=== PATIENT | female | born 1945 | race Caucasian/White ===

== ENCOUNTER 2018-02-25 08:55 | Day surgery (SDC) | payer MEDICARE, SELFPAY ==
[2018-02-25 09:29] VITALS: BP 145/90; PULSE 74; RESP 16; TEMP 36.5; O2SAT 96
[2018-02-25] MEDS: Lactated Ringers 1,000 ML 30 ML IV (09:54)
--- NOTE | 2018-02-25 11:03 | W.COLOREPORT ---
Date of service: 02/25/18 Time of Service: 11:03 Colonoscopy Report Date of procedure: 02/25/18 Pre-op diagnosis general: Colorectal cancer screening Post-op diagnosis procedure note: other (Normal colon to the cecum) Procedure: Colonoscopy to the cecum Surgeon: Joao Quintanilla Anesthesia proc note operative: MAC (Mine Fitzpatrick CRNA; ASA 2 Mallampati class II) Estimated blood loss (mL): 0 Pathology: none sent Complications: None Disposition: same day Indications: 9-year-old woman presenting for colorectal cancer screening. She has been asymptomatic since her last colonoscopy which was unremarkable. She has no family history of colorectal cancer. Muscular procedure is been reviewed with her, and the risk discussed. All her questions been answered to her satisfaction, and consents been obtained to proceed with colonoscopy Prep: Miralax/Dulcolax (Prep quality excellent) Procedure Start Time: 11:23 Procedure End Time: 11:25 Retraction Time: 6 Findings: In examining the colon from cecum to anus, no abnormalities were noted throughout the colon, rectum, and anorectal junction. Procedure Description: The patient was seen in the day surgery waiting area. Her identification was confirmed, and procedure checked. She was then brought to the procedure room. Monitoring for telemetry, blood pressure, oxygen saturation, and end tidal CO2 monitoring were applied. An appropriate time out was performed to confirm, identification, allergies, medication, procedure, was performed. Sedation was titrated for affect by the [employer]EFITS; Once adequate sedation was achieved, I performed a inspection of the external perineum, and a digitial rectal examination. No significant external abnormalities were noted. On digital rectal examination, there was no blood, no masses, good rectal tone. I advanced the colonoscope from the anus to the cecum under direct visualization. The cecum was identified by the ileal-cecal valve, and the appendiceal orifice. The scope was then withdrawn in circumferential manner from the cecum to the rectum. No abnormalites were noted in the colon. The scope was then withdrawn into the rectum, and retroflexed. No abnormalities were noted of the rectum or anorectal junction. The scope was then withdrawn, terminating the procedure. There were no complications during the procedure, and the patient tolerated the procedure well. She was returned to the day surgery recovery area in good condition. Plan: Will continue with routine screening for colorectal cancer according to current consensus guidelines, which is currently 10 years.
--- NOTE | 2018-02-25 11:34 | W.PM.DSUDISC ---
Discharge Plan Disposition Patient Disposition: HOME Condition: Good Discharge Details Reason For Visit: SCREENING Attending Provider: Joao Quintanilla Primary Care Provider: Eddie Stubbs Coulters Meds and New Rx's Prescriptions: Continue valsartan-hydrochlorothiazide [Diovan HCT] 160-12.5 mg tablet 1 tab PO DAILY RF: 0 amlodipine 5 mg tablet 5 mg PO DAILY RF: 0 metronidazole 0.75 % cream 1 applic TP BID RF: 0 cholecalciferol (vitamin D3) 2,000 unit capsule 2,000 unit PO DAILY RF: 0 [id number] serr [Glucosamine Daily Complex] 1,500-400-100 mg-unit-mg tablet 1 tab PO DAILY RF: 0 Discontinued bisacodyl [Dulcolax (bisacodyl)] 5 mg tablet,delayed release (DR/EC) 5 mg PO ONCE Qty: 4 RF: 0 polyethylene glycol 3350 17 gram/dose powder 255 g PO ONCE Qty: 255 RF: 0 Discharge Instructions Instructions: Colonoscopy (DC) Activity:: Activity as Tolerated Diet:: As Tolerated Discharge Orders Discharge Orders: Discharge Order (Routine); Ordered 02/25/18 Ordered By: Joao Quintanilla DS: Diagnosis Discharge Diagnosis (1) Encounter for screening colonoscopy: Status: Acute Asessment and Plan: Colonoscopy performed: Colonoscopy Report Date of procedure: 02/25/18 Pre-op diagnosis general: Colorectal cancer screening Post-op diagnosis procedure note: other (Normal colon to the cecum) Procedure: Colonoscopy to the cecum Surgeon: Joao Quintanilla Anesthesia proc note operative: MAC (Mine Fitzpatrick CRNA; ASA 2 Mallampati class II) Estimated blood loss (mL): 0 Pathology: none sent Complications: None Disposition: same day Indications: 9-year-old woman presenting for colorectal cancer screening. She has been asymptomatic since her last colonoscopy which was unremarkable. She has no family history of colorectal cancer. Muscular procedure is been reviewed with her, and the risk discussed. All her questions been answered to her satisfaction, and consents been obtained to proceed with colonoscopy Prep: Miralax/Dulcolax (Prep quality excellent) Procedure Start Time: 11:23 Procedure End Time: 11:25 Retraction Time: 6 Findings: In examining the colon from cecum to anus, no abnormalities were noted throughout the colon, rectum, and anorectal junction. Procedure Description: The patient was seen in the day surgery waiting area. Her identification was confirmed, and procedure checked. She was then brought to the procedure room. Monitoring for telemetry, blood pressure, oxygen saturation, and end tidal CO2 monitoring were applied. An appropriate time out was performed to confirm, identification, allergies, medication, procedure, was performed. Sedation was titrated for affect by the DRUG REGULATORY AFFAIRS SPECIALIST; Once adequate sedation was achieved, I performed a inspection of the external perineum, and a digitial rectal examination. No significant external abnormalities were noted. On digital rectal examination, there was no blood, no masses, good rectal tone. I advanced the colonoscope from the anus to the cecum under direct visualization. The cecum was identified by the ileal-cecal valve, and the appendiceal orifice. The scope was then withdrawn in circumferential manner from the cecum to the rectum. No abnormalites were noted in the colon. The scope was then withdrawn into the rectum, and retroflexed. No abnormalities were noted of the rectum or anorectal junction. The scope was then withdrawn, terminating the procedure. There were no complications during the procedure, and the patient tolerated the procedure well. She was returned to the day surgery recovery area in good condition. Plan: Will continue with routine screening for colorectal cancer according to current consensus guidelines, which is currently 10 years.
[2018-02-25 12:06] VITALS: BP 113/64; PULSE 62; RESP 16; TEMP 36.3; O2SAT 100
== END 2018-02-25 12:29 | disposition home or self-care (01) ==
PROVIDERS: PCP Family Medicine; Visit Provider Surgery
PROC: 0DJD8ZZ Inspection of Lower Intestinal Tract, Via Natural or Artificial Opening Endoscopic (ICD-10-PCS; CPT 45378; principal; 2018-02-25 10:30)
DX: Z12.11 Encounter for screening for malignant neoplasm of colon (principal)
CPT/HCPCS: 45378

== ENCOUNTER 2018-05-06 13:29 | Emergency (ER) | payer MEDICARE, SELFPAY ==
[2018-05-06] VITALS (30 sets, daily range): BP systolic 108–152; BP diastolic 50–86; PULSE 66–102; RESP 11–33; TEMP 36.8–37; O2SAT 96–99
--- NOTE | 2018-05-06 13:37 | W.ED.GENAD ---
Discharge Plan Disposition Patient Disposition: HOME Condition: Stable Discharge Details Chief Complaint: Chest Pain Clinical Impression: Chest pain Primary Care Provider: Eddie Stubbs ED Provider: Moses Esqueda Home Meds and New Rx's Prescriptions: Continued valsartan-hydrochlorothiazide [Diovan HCT] 160-12.5 mg tablet 1 tab PO DAILY RF: 0 amlodipine 5 mg tablet 5 mg PO DAILY RF: 0 cholecalciferol (vitamin D3) 2,000 unit capsule 2,000 unit PO DAILY RF: 0 [id number] serr [Glucosamine Daily Complex] 1,500-400-100 mg-unit-mg tablet 1 tab PO DAILY RF: 0 omega-3 fatty acids [Fish Oil Concentrate] 1,000 mg Capsule PO DAILY RF: 0 aspirin 325 mg Tablet 325 mg PO DAILY RF: 0 Discharge Instructions Instructions: Chest Pain (ED) Additional Instructions: Your blood work, ekg, and cat scan did not show any concerning findings Follow up with your primary care provider this week and discuss having a stress test If you feel the chest pain is worsening, are having trouble breathing or have nausea with vomit return to the emergency department Medical Decision Making 72 yo female with hx of htn, former smoker, who comes in with chief complaint chest pain. She states around 1150am she had 2 minutes of chest squeezing that did not radiate, no diaphoresis or n/v. It resolved without intervention. She states she has a tight sensation throughout the chest since that she rates as 0/10 (states no pain at all). No prior known cad and has no family hx per pt. She took 324mg asa this morning prior to the start of all of this. She is in no distress on exam laughing and joking throughout the exam. She has clear lung sounds, no pedal edema or jvd and no murmurs. Her heart score is 3 based on age and risk factors. Will send troponin, ecg nondiagnostic. Her wells score is moderate given it is just as equally likely as any other dianosis so will obtain CTA. Normal vascular exam and no tearing back pain so doubt dissection at this time. labs and imaging unremarkable, she remains in no distress and continues to laugh and denies symptoms. She prefers second troponin over admission for observation after discussion of risks benefits, this and second ecg ordered and will remain on tele pt has been in no distress, reading a book and talking in full sentences. Second troponin and ecg unchanged. She will f/u with pcp this week and return if worsening Differential Diagnosis muscle spasm, gerd, acs, pe, dissection Imaging Data Radiologic Study: Attestation: I personally reviewed and interpreted this imaging study as follows: Imaging: CT Scan Radiologist's impression: IMPRESSION: No evidence of pulmonary embolus, thoracic aortic dissection or aneurysm Lab Data Lab results reviewed: Yes I reviewed the patient's lab results. ECG Data Attestation: I personally reviewed and interpreted this ECG (s) as follows: Prior ECG tracings: not available for review Interpretation: sinus rhythm, rate of 75, pr 180, no acute st t wave ischemic findings 2nd ekg shows rate of 63, sinus rhythm, pr 194, no acute st t wave changes HPI General Mode of arrival: ambulatory. Date/Time Provider Initiated Documentation: 05/06/18 13:29. Limitations to Documentation: no limitations. Information obtained by: patient. History of Present Illness 72 year old F presents to the emergency department with the chief complaint of chest pain, described as mild, Quality is described as aching, and is localized to the chest. Patient reports no radiation. Patient started experiencing this hour(s) (2) and it has been constant. No relieving factors improve symptom(s), No exacerbating factors reported . Patient notes no other symptoms.. Patient did receive the following treatments prior to arrival, Aspirin (took 324mg asa this morning) Related Data Home Medications Medication Instructions Recorded Confirmed amlodipine 5 mg tablet 5 mg PO DAILY 02/07/18 05/06/18 cholecalciferol (vitamin D3) 2,000 2,000 unit PO DAILY 02/07/18 05/06/18 unit capsule glucosamine [id number] 1 tab PO DAILY 02/07/18 05/06/18 juanita 1,500 mg-400 unit-100 mg tablet valsartan 160 1 tab PO DAILY 02/07/18 05/06/18 mg-hydrochlorothiazide 12.5 mg tablet aspirin 325 mg PO DAILY 05/06/18 05/06/18 omega-3 fatty acids [Fish Oil mg PO DAILY 05/06/18 Concentrate] Allergies Allergy/AdvReac Type Severity Reaction Status Date / Time NATHALIE Inhibitors Allergy Verified 05/06/18 13:42 enalapril Allergy Verified 05/06/18 13:42 feathers Allergy Verified 05/06/18 13:42 house dust Allergy Verified 05/06/18 13:42 Review of Systems Review of Systems All systems reviewed & are unremarkable except as noted in HPI and below Constitutional Denies chills, Denies fever(s) and Denies weakness Eyes Denies loss of vision ENT Denies change in voice Cardiovascular Denies dyspnea Respiratory Denies cough and Denies dyspnea Gastrointestinal Denies abdominal pain, Denies nausea and Denies vomiting Genitourinary Denies dysuria Musculoskeletal Denies joint swelling Neurologic Denies loss of vision and Denies weakness Psychiatric Denies depression Endocrine Denies cold intolerance and Denies heat intolerance [facility] Medical History History of tobacco abuse (Chronic) Hypertension (Chronic) Mitral valve disorder (Chronic) Obesity (Chronic) Hyperlipidemia (Chronic) Depression (Chronic) HPV (human papilloma virus) infection (Chronic) Osteopenia (Chronic) Spinal stenosis (Chronic) Surgical History H/O colonoscopy (Resolved 02/25/09) Social History Smoking and Tabacco status: Former Tobacco Use Exam Const General: no acute distress Orientation: alert HENMT Head: normal to inspection Ears: external ears normal General nose exam: external nose normal Mouth: moist mucous membranes Eyes General: appearance normal, both eyes and all related structures Neck Neck: normal visual inspection Resp Effort & Inspection: normal respiratory effort and able to speak in complete sentences Cardio Rate: regular rate Skin General skin exam: no rashes or lesions noted Neuro General: alert and oriented x3 Extrem General: normal to inspection Psych Mental Status: mental status grossly normal
[2018-05-06] MEDS: Aspirin 81 MG CHEW 324 MG CH (13:47)
--- NOTE | 2018-05-06 13:55 | DI.CT_ITS ---
SYMPTOMS/DIAGNOSIS: CHEST PAIN, SHORTNESS OF BREATH CT SCAN OF THE CHEST: CT angiography was performed with multi slice acquisition and multi planar and 3D reconstruction. CT scan of the chest was performed according to the pulmonary embolus protocol. There is atherosclerosis of the thoracic aorta, but no aneurysmal dilatation is seen. The heart size is within normal limits. No significant pericardial effusion is seen. No evidence of right ventricular dysfunction is present. No significant mediastinal adenopathy is present. No pleural effusion or pneumothorax is identified. There is no evidence of a pulmonary embolus. No focal consolidating infiltrates are seen. There are atelectatic changes seen in the lung bases. The tracheobronchial tree is unremarkable. Upper abdominal images are unremarkable. Degenerative changes are seen in the spine. IMPRESSION: No evidence of pulmonary embolus, thoracic aortic dissection or aneurysm. The findings were discussed with the Emergency Department on the date of the examination.
--- NOTE | 2018-05-06 13:55 | ED.GENADUL_ITS ---
Discharge Plan Disposition Patient Disposition: HOME Condition: Stable Discharge Details Chief Complaint: Chest Pain Clinical Impression: Chest pain Primary Care Provider: Eddie Stubbs ED Provider: Moses Esqueda Home Meds and New Rx's Prescriptions: Continued valsartan-hydrochlorothiazide [Diovan HCT] 160-12.5 mg tablet 1 tab PO DAILY RF: 0 amlodipine 5 mg tablet 5 mg PO DAILY RF: 0 cholecalciferol (vitamin D3) 2,000 unit capsule 2,000 unit PO DAILY RF: 0 [id number]-Hcutjrige serr [Glucosamine Daily Complex] 1,500-400-100 mg-unit-mg tablet 1 tab PO DAILY RF: 0 omega-3 fatty acids [Fish Oil Concentrate] 1,000 mg Capsule PO DAILY RF: 0 aspirin 325 mg Tablet 325 mg PO DAILY RF: 0 Discharge Instructions Instructions: Chest Pain (ED) Additional Instructions: Your blood work, ekg, and cat scan did not show any concerning findings Follow up with your primary care provider this week and discuss having a stress test If you feel the chest pain is worsening, are having trouble breathing or have nausea with vomit return to the emergency department Medical Decision Making 72 yo female with hx of htn, former smoker, who comes in with chief complaint chest pain. She states around 1150am she had 2 minutes of chest squeezing that did not radiate, no diaphoresis or n/v. It resolved without intervention. She states she has a tight sensation throughout the chest since that she rates as 0/10 (states no pain at all). No prior known cad and has no family hx per pt. She took 324mg asa this morning prior to the start of all of this. She is in no distress on exam laughing and joking throughout the exam. She has clear lung sounds, no pedal edema or jvd and no murmurs. Her heart score is 3 based on age and risk factors. Will send troponin, ecg nondiagnostic. Her wells score is moderate given it is just as equally likely as any other dianosis so will obtain CTA. Normal vascular exam and no tearing back pain so doubt dissection at this time. labs and imaging unremarkable, she remains in no distress and continues to laugh and denies symptoms. She prefers second troponin over admission for observation after discussion of risks benefits, this and second ecg ordered and will remain on tele pt has been in no distress, reading a book and talking in full sentences. Second troponin and ecg unchanged. She will f/u with pcp this week and return if worsening Differential Diagnosis muscle spasm, gerd, acs, pe, dissection Imaging Data Radiologic Study: Attestation: I personally reviewed and interpreted this imaging study as follows: Imaging: CT Scan Radiologist's impression: IMPRESSION: No evidence of pulmonary embolus, thoracic aortic dissection or aneurysm Lab Data Lab results reviewed: Yes I reviewed the patient's lab results. ECG Data Attestation: I personally reviewed and interpreted this ECG (s) as follows: Prior ECG tracings: not available for review Interpretation: sinus rhythm, rate of 75, pr 180, no acute st t wave ischemic findings 2nd ekg shows rate of 63, sinus rhythm, pr 194, no acute st t wave changes HPI General Mode of arrival: ambulatory . Date/Time Provider Initiated Documentation: 05/06/18 13:29 . Limitations to Documentation: no limitations . Information obtained by: patient . History of Present Illness 72 year old F presents to the emergency department with the chief complaint of chest pain, described as mild, Quality is described as aching, and is localized to the chest. Patient reports no radiation. Patient started experiencing this hour(s) (2) and it has been constant. No relieving factors improve symptom(s), No exacerbating factors reported . Patient notes no other symptoms.. Patient did receive the following treatments prior to arrival, Aspirin (took 324mg asa this morning) Related Data Home Medications Medication Instructions Recorded Confirmed amlodipine 5 mg tablet 5 mg PO DAILY 02/07/18 05/06/18 cholecalciferol (vitamin D3) 2,000 2,000 unit PO DAILY 02/07/18 05/06/18 unit capsule glucosamine [id number]-Cekzsddvb 1 tab PO DAILY 02/07/18 05/06/18 juanita 1,500 mg-400 unit-100 mg tablet valsartan 160 1 tab PO DAILY 02/07/18 05/06/18 mg-hydrochlorothiazide 12.5 mg tablet aspirin 325 mg PO DAILY 05/06/18 05/06/18 omega-3 fatty acids [Fish Oil mg PO DAILY 05/06/18 Concentrate] Allergies Allergy/AdvReac Type Severity Reaction Status Date / Time NATHALIE Inhibitors Allergy Verified 05/06/18 13:42 enalapril Allergy Verified 05/06/18 13:42 feathers Allergy Verified 05/06/18 13:42 house dust Allergy Verified 05/06/18 13:42 Review of Systems Review of Systems All systems reviewed & are unremarkable except as noted in HPI and below Constitutional Denies chills, Denies fever(s) and Denies weakness Eyes Denies loss of vision ENT Denies change in voice Cardiovascular Denies dyspnea Respiratory Denies cough and Denies dyspnea Gastrointestinal Denies abdominal pain, Denies nausea and Denies vomiting Genitourinary Denies dysuria Musculoskeletal Denies joint swelling Neurologic Denies loss of vision and Denies weakness Psychiatric Denies depression Endocrine Denies cold intolerance and Denies heat intolerance [facility] Medical History History of tobacco abuse (Chronic) Hypertension (Chronic) Mitral valve disorder (Chronic) Obesity (Chronic) Hyperlipidemia (Chronic) Depression (Chronic) HPV (human papilloma virus) infection (Chronic) Osteopenia (Chronic) Spinal stenosis (Chronic) Surgical History H/O colonoscopy (Resolved 02/25/09) Social History Smoking and Tabacco status: Former Tobacco Use Exam Const General: no acute distress Orientation: alert HENMT Head: normal to inspection Ears: external ears normal General nose exam: external nose normal Mouth: moist mucous membranes Eyes General: appearance normal, both eyes and all related structures Neck Neck: normal visual inspection Resp Effort & Inspection: normal respiratory effort and able to speak in complete sentences Cardio Rate: regular rate Skin General skin exam: no rashes or lesions noted Neuro General: alert and oriented x3 Extrem General: normal to inspection Psych Mental Status: mental status grossly normal
[2018-05-06 14:06] LABS: Abs Immature Grans 0.02 k/cumm (0.0-0.09); Absolute Basophil Count 0.04 k/cumm (0.0-0.2); Absolute Lymphocyte Count 2.32 k/cumm (1.2-3.4); Absolute Monocyte Count 0.57 k/cumm (0.11-0.7); Absolute Neutrophil Count 4.23 k/cumm (1.2-6.7); Basophils % 0.5; Eosinophils % 1.4; HCT 39.8 % (36.0-46.0); HGB 13.1 g/dL (12.0-15.5); Immature Grans % 0.3; Lymphocytes % 31.9; Mean Corp. HGB Concentration 32.9 g/dL (32.0-36.0); Mean Corpuscular Hemoglobin 30.5 pg (27.0-33.0); Mean Corpuscular Volume 92.6 fL (80-95); Mean Platelet Volume 10.8 fL (8.0-11.0); Monocytes % 7.8; Neutrophils % 58.1; Platelet Count 235 x1000/uL (130-400); RBC Distribution Width 13.3 % (11.7-14.6); White Blood Cell Count 7.28 k/cumm (4.4-10.8)
[2018-05-06 14:14] LABS: ALT 23 U/L (12-78); AST 18 U/L (15-37); Albumin 3.3 g/dL (3.4-5.0); Alkaline Phosphatase 68 U/L (46-116); Anion Gap 8.9 mmol/L (3-11); BUN 25 mg/dL (7-18); Bilirubin, Direct 0.07 mg/dL (0.00-0.20); Bilirubin, Total 0.2 mg/dL (0.2-1.0); CO2 28.1 mmol/L (21.0-32.0); CREATININE 0.82 mg/dL (0.55-1.02); Chloride 107 mmol/L (98-107); Glucose 112 mg/dL (70-100); Lipase 130 U/L (73-393); Potassium 3.9 mmol/L (3.5-5.1); Sodium 144 mmol/L (136-145)
[2018-05-06 14:20] LABS: Calcium 8.8 mg/dL (8.5-10.1)
[2018-05-06 14:22] LABS: Troponin I < 0.02 ng/mL (0.00-0.06)
[2018-05-06] MEDS: Omnipaque 350 MG/ML 100 ML BTL IJ (14:46)
[2018-05-06 17:21] LABS: Troponin I < 0.02 ng/mL (0.00-0.06)
--- NOTE | 2018-05-09 09:29 | PDOC.ERCMPRO ---
Care Management Progress Note 05/09-Dr. Esqueda requested assistance with a PCP ([facility]) f/u this week for chest pain and to discuss stress test. Referral faxed to [facility] am.
--- NOTE | 2018-05-09 09:35 | CMPROGNOTE_ITS ---
Care Management Progress Note 05/09-Dr. Esqueda requested assistance with a PCP ([facility]) f/u this week for chest pain and to discuss stress test. Referral faxed to [facility] am.
== END 2018-05-06 17:36 | disposition home or self-care (01) ==
PROVIDERS: Emergency Provider Emergency Medicine; PCP Family Medicine
DX: R07.9 Chest pain, unspecified (principal); I10 Essential (primary) hypertension
CPT/HCPCS: 36415; 71275; 80053; 80076; 83690; 93005; 99285; 84484; 85025; 93010; 99284; J3490

== ENCOUNTER 2018-05-24 00:38 | Outpatient (CLI) | payer MEDICARE, SELFPAY ==
--- NOTE | 2018-05-24 13:05 | DI.RAD_ITS ---
SYMPTOMS/DIAGNOSIS: LEG PAIN, M79.605 LEFT FEMUR: No fracture, lytic or blastic bony lesions are seen. The hip joint space is well maintained. There are degenerative changes at the knee, greatest at the patellofemoral joint. Vascular calcifications are faintly seen. IMPRESSION: Degenerative changes of the knee.
--- NOTE | 2018-05-24 13:30 | DI.RAD_ITS ---
SYMPTOMS/DIAGNOSIS: OSTEOPENIA, M85.88 DEXA SCAN WITH ZAKIA: Comparison is made with exams from 2006 and 2009. The ZAKIA image shows no evidence of compression fractures. The bone mineral density measurements of the lumbar spine correspond to a total T score of -2.0, in the osteopenic range. This is an 8.3% decrease when compared with 2008 and a 5.7% decrease when compared with 2005. The bone mineral density measurements of the left hip correspond to a total T score of -0.9 and a femoral neck T score of -2.1, consistent with osteopenia. The total bone density has decreased 10.6% when compared with 2008 and 7.7% when compared with 2005. The bone mineral density measurements of the left forearm correspond to a total T score of -1.9 and a T score in the distal third of -1.7. The forearm was not analyzed on the previous exams. IMPRESSION: Osteopenia of the lumbar spine, left hip and left forearm.
--- NOTE | 2018-05-24 14:18 | MERGE_ITS ---
*[facility]* *[facility]* [address] [place] [address] Date of study: 05/24/2018 Transthoracic Echocardiography M-mode, complete 2D, complete spectral Doppler, and color Doppler *STUDY CONCLUSIONS* Summary: 1. Left ventricle: The cavity size was normal. Wall thickness was increased in a pattern of mild LVH. Systolic function was normal. The estimated ejection fraction was 60-65%. Wall motion was normal; there were no regional wall motion abnormalities. 2. Mitral valve: Mildly thickened leaflets. No echocardiographic evidence for prolapse. There was mild regurgitation. 3. Right ventricle: The cavity size was normal. Wall thickness was normal. Systolic function was normal. *PATIENT PRESENTATION* Height: 162.6cm ((64in) ) S/D Pressure: 140 / 76 Weight: 93kg ((204.6lb) ) BSA: 2.09m^2 Test start time: 02:15 PM. Test stop time: 03:10 PM. PERFORMING Unknown PERFORMING [facility] [employer] Stephania Campos RT (R)(CT), [facility] ORDERING Eddie Stubbs REFERRING Eddie Stubbs *PROCEDURE DATA* Procedure information: The patient was identified by two identifiers. This study was interpreted by [facility]. Pertinent images and digital data are archived for permanent storage and are available for subsequent review. No prior study was available for comparison. Study status: Routine. Transthoracic echocardiography. M-mode, complete 2D, complete spectral Doppler, and color Doppler. A Transthoracic Echocardiogram was performed. Scanning was performed from the parasternal, apical, subcostal, and suprasternal notch acoustic windows. Images were obtained using an [id number] cardiac ultrasound machine. Image quality was adequate. Study completion: The patient tolerated the procedure well. There were no complications. History: PMH: Mitral valve disorder i34.8 *CARDIAC ANATOMY* Left ventricle: The cavity size was normal. Wall thickness was increased in a pattern of mild LVH. Systolic function was normal. The estimated ejection fraction was 60-65%. Wall motion was normal; there were no regional wall motion abnormalities. Some parameters suggest diastolic dysfunction. Aortic valve: Trileaflet; normal thickness, mildly calcified leaflets. Mobility was not restricted. Doppler: Transvalvular velocity was within the normal range. There was no stenosis. There was no significant regurgitation. VTI ratio of LVOT to aortic valve: 0.68. Valve area (VTI): 2.1cm^2. Indexed valve area (VTI): 1cm^2/m^2. Peak velocity ratio of LVOT to aortic valve: 0.69. Valve area (Vmax): 2.1cm^2. Indexed valve area (Vmax): 1cm^2/m^2. Mean velocity ratio of LVOT to aortic valve: 0.71. Valve area (Vmean): 2.2cm^2. Indexed valve area (Vmean): 1cm^2/m^2. Mean gradient (S): 4mm Hg. Peak gradient (S): 7.1mm Hg. Aorta: Aortic root: The aortic root was normal in size. Ascending aorta: The ascending aorta was normal in size. Mitral valve: Mildly thickened leaflets. Mobility was not restricted. No echocardiographic evidence for prolapse. Doppler: Transvalvular velocity was within the normal range. There was no evidence for stenosis. There was mild regurgitation. Valve area by pressure half-time: 3.6cm^2. Indexed valve area by pressure half-time: 1.7cm^2/m^2. Peak gradient (D): 3.8mm Hg. Left atrium: The atrium was normal in size. Right ventricle: The cavity size was normal. Wall thickness was normal. Systolic function was normal. Pulmonic valve: Structurally normal valve. Doppler: Transvalvular velocity was within the normal range. There was no evidence for stenosis. There was trivial regurgitation. Tricuspid valve: Structurally normal valve. Doppler: Transvalvular velocity was within the normal range. There was no evidence for stenosis. There was no significant regurgitation. Pulmonary artery: Pulmonary systolic pressure was within the normal range, in the range of 25mm Hg to 30mm Hg. Right atrium: The atrium was normal in size. Pericardium: There was no pericardial effusion. Systemic veins: Inferior vena cava: Well visualized. The vessel was patent and normal in size. The respirophasic diameter changes were in the normal range (greater than or equal to 50%). Baseline ECG: Normal sinus rhythm. Measurements Left ventricle Value Reference LV ID, ED, PLAX 4.3 cm 3.5 - 6.0 LV ID, ES, PLAX 3.1 cm 2.1 - 4.0 LV PW thickness, ED, PLAX 1.0 cm LV end-diastolic volume, 1-p A2C 80 ml LV ejection fraction, 1-p A2C 65 % LV end-diastolic volume, 1-p A4C 76 ml LV ejection fraction, 1-p A4C 62 % LV e', lateral 0.101 m/sec LV E/e', lateral 10 LV e', medial 0.099 m/sec LV E/e', medial 10 LV e', average 0.1 m/sec LV E/e', average 10 Ventricular septum Value Reference IVS thickness, ED, PLAX 1.1 cm LVOT Value Reference LVOT ID, A-P 2.0 cm LVOT area 3.1 cm^2 LVOT peak velocity, S 0.92 m/sec LVOT mean velocity, S 0.68 m/sec LVOT VTI, S 21.0 cm LVOT peak gradient, S 3.4 mm Hg LVOT mean gradient, S 2 mm Hg Stroke volume (SV), LVOT DP 64 ml Stroke index (SV/bsa), LVOT DP 31 ml/m^2 Aortic valve Value Reference Aortic valve peak velocity, S 1.3 m/sec Aortic valve mean velocity, S 0.95 m/sec Aortic valve VTI, S 31.0 cm Aortic mean gradient, S 4 mm Hg Aortic peak gradient, S 7.1 mm Hg VTI ratio, LVOT/AV 0.68 Aortic valve area, VTI 2.1 cm^2 Velocity ratio, peak, LVOT/AV 0.69 Aortic valve area, peak velocity 2.1 cm^2 Velocity ratio, mean, LVOT/AV 0.71 Aortic valve area, mean velocity 2.2 cm^2 Aortic valve area/bsa, mean velocity 1 cm^2/m^2 Aorta Value Reference Aortic root ID, ED 2.7 cm Ascending aorta ID, A-P, S 3.5 cm Left atrium Value Reference LA ID, A-P, ES 3.8 cm LA ID/bsa, A-P 1.8 cm/m^2 <=2.2 LA area, ES, A4C 18.9 cm^2 8.8 - 23.4 LA area, ES, A2C 19 cm^2 LA volume/bsa, ES, 1-p A4C 30 ml/m^2 LA volume, ES, 2-p 56 ml LA volume/bsa, ES, 2-p 27 ml/m^2 LA/aortic root ratio 1.4 Mitral valve Value Reference Mitral E-wave peak velocity 0.98 m/sec Mitral A-wave peak velocity 1.01 m/sec Mitral deceleration time 209 ms 150 - 230 Mitral pressure half-time 61 ms Mitral peak gradient, D 3.8 mm Hg Mitral E/A ratio, peak 0.97 Mitral valve area, PHT, DP 3.6 cm^2 Mitral peak LV-LA gradient, S 160.3 mm Hg Mitral maximal regurg velocity, PISA 6.33 m/sec Mitral regurg VTI, PISA 230.6 cm Pulmonary veins Value Reference Pulmonary vein peak velocity, S 0.66 m/sec Pulmonary vein peak velocity, D 0.37 m/sec Pulmonary vein velocity ratio, peak, 1.81 S/D Pulmonary vein A-wave reversal peak 0.34 m/sec velocity Tricuspid valve Value Reference Tricuspid regurg peak velocity 2.5 m/sec Tricuspid peak RV-RA gradient 24.1 mm Hg Right atrium Value Reference RA area, ES, A4C 17.6 cm^2 8.3 - 19.5 Legend: (L) and (H) ankush values outside specified reference range. I have personally reviewed the images and have reviewed and edited the reported findings. Electronically signed by Ronald Singh 05/24/2018 19:51
== END 2018-05-24 00:58 ==
PROVIDERS: PCP Family Medicine; Visit Provider Family Medicine
DX: I34.8 Other nonrheumatic mitral valve disorders (principal); R07.9 Chest pain, unspecified; M85.88 Other specified disorders of bone density and structure, other site; M79.605 Pain in left leg; M17.12 Unilateral primary osteoarthritis, left knee
CPT/HCPCS: 73552; 77080; 93306

== ENCOUNTER 2019-03-18 04:27 | Outpatient (CLI) | payer MEDICARE, SELFPAY ==
[2019-03-18 11:20] LABS: Anion Gap 8.5 mmol/L (3-11); BUN 16 mg/dL (7-18); CO2 30.5 mmol/L (21.0-32.0); CREATININE 0.63 mg/dL (0.55-1.02); Calcium 8.8 mg/dL (8.5-10.1); Chloride 104 mmol/L (98-107); Glucose 89 mg/dL (74-106); Potassium 4.3 mmol/L (3.5-5.1); Sodium 143 mmol/L (136-145)
== END 2019-03-18 04:47 ==
PROVIDERS: PCP Family Medicine; Visit Provider Family Medicine
DX: I10 Essential (primary) hypertension (principal)
CPT/HCPCS: 36415; 80048

== ENCOUNTER 2019-11-01 02:08 | Outpatient (CLI) | payer MEDICARE, SELFPAY ==
--- NOTE | 2019-11-01 | DI.MAMMO_ITS ---
EXAM: MG MAMMO SCREENING CLINICAL HISTORY: SCREENING,Z12.31 TECHNIQUE: Bilateral full field digital CC and MLO mammographic images were obtained with 3D tomosyn thesis and utilizing computer aided detection (CAD). COMPARISON: Available for comparison. FINDINGS: Masses/Architectural Distortion: None seen. Microcalcifications: No suspicious pleomorphic-type are seen. Skin Thickening/Nipple Retraction: None. IMPRESSION: 1. No significant interval change with no specific features of malignancy noted. 2. Unless there is more urgent need, screening mammography is recommended, as per [employer] guidelines. BI-RADS Category 1 - Negative Breast Density - Category B - Scattered areas of fibroglandular density A negative radiographic report should not delay biopsy if a dominant or clinically suspicious mass is present. Up to ten percent of cancers are not identified on mammography. A negative report may reinforce clinical impression. Adenosis and dense breasts may obscure an underlying neoplasm. False positive reports average 6 to 10%. Patient will receive a letter notifying them of these results.
== END 2019-11-01 02:28 ==
PROVIDERS: PCP Family Medicine; Visit Provider Family Medicine
DX: Z12.31 Encounter for screening mammogram for malignant neoplasm of breast (principal); R92.2 Inconclusive mammogram
CPT/HCPCS: 77063; 77067

== ENCOUNTER 2019-12-06 12:23 | Outpatient (REF) | payer MEDICARE, SELFPAY ==
--- NOTE | 2019-12-06 12:00 | PAPFT_PTH ---
PATIENT: Deena Corcoran [facility] U#:[id number] AGE/SX: 74/F ROOM: RE12/06/[address]: Eddie Stubbs : 1945 BED: DIS: 12/06/2019 SPEC #: [id number] RECD: 12/07/19 13:14 STATUS: SIRENA REQ #: [id number] BEVERLY: 12/06/19 12:[address]: Eddie Stubbs DEPT: [facility] Cytology RECD BY: Melissa Briseno Tissues: 1 - CX/ENDOCX FOR PAP SMEARS Procedures: PAP THIN PREP/UVM Screening HPV DNA PROBE Comments: [id number]
== END 2019-12-06 12:43 ==
LOC: NCHCN 12:23
PROVIDERS: PCP Family Medicine; Visit Provider Family Medicine
DX: Z12.4 Encounter for screening for malignant neoplasm of cervix (principal); Z11.51 Encounter for screening for human papillomavirus (HPV)
CPT/HCPCS: 88142; 87624

== ENCOUNTER 2019-12-06 13:46 | Outpatient (REF) | payer MEDICARE, SELFPAY ==
[2019-12-06 20:00] LABS: HCT 43.5 % (36.0-46.0); HGB 14.6 g/dL (11.2-15.7); MCH 30.1 pg (27.0-33.0); MCHC 33.6 % (32.0-36.0); MCV 89.7 fL (80-95); MPV 11.3 fL (8.0-11.0); Platelet Count 290 10^3/uL (130-400); RBC 4.85 10^6/uL (3.93-5.22); RDW 12.7 % (11.7-14.6); RDW-SD 41.7 fL; WBC 6.78 10^3/uL (4.4-10.8)
[2019-12-06 20:39] LABS: Anion Gap 7.8 mmol/L (3-11); BUN 14 mg/dL (7-18); CO2 27.2 mmol/L (21.0-32.0); CREATININE 0.63 mg/dL (0.55-1.02); Calcium 9.3 mg/dL (8.5-10.1); Chloride 104 mmol/L (98-107); Glucose 98 mg/dL (74-106); Potassium 4.2 mmol/L (3.5-5.1); Sodium 139 mmol/L (136-145); TSH (W/Ref FT4) 1.43 uIU/mL (0.36-3.74); Vitamin B12 577 pg/mL (193-986)
== END 2019-12-06 14:06 ==
LOC: NCHCN 13:46
PROVIDERS: PCP Family Medicine; Visit Provider Family Medicine
DX: R41.3 Other amnesia (principal); I10 Essential (primary) hypertension
CPT/HCPCS: 80048; 85027; 82607; 84443

== ENCOUNTER 2020-12-30 20:25 | Outpatient (REF) | payer MEDICARE, SELFPAY ==
[2020-12-30 20:17] LABS: Anion Gap 11.4 mmol/L (3-11); BUN 18 mg/dL (7-18); CO2 25.6 mmol/L (21.0-32.0); CREATININE 0.8 mg/dL (0.55-1.02); Chloride 102 mmol/L (98-107); Glucose 119 mg/dL (74-106); Potassium 4.4 mmol/L (3.5-5.1); Sodium 139 mmol/L (136-145)
== END 2020-12-30 20:26 | disposition home or self-care (01) ==
LOC: NCHCN 20:25
PROVIDERS: PCP Family Medicine; Visit Provider Family Medicine
DX: I10 Essential (primary) hypertension (principal)
CPT/HCPCS: 80048

== ENCOUNTER → 2021-12-08 12:40 | Outpatient (CLI) | payer MEDICARE, SELFPAY ==
--- NOTE | 2021-12-08 | DI.RAD_ITS ---
Exam(s) XR SHOULDER LT COMPLETE 2+V EXAM: XR SHOULDER LT COMPLETE 2+V CLINICAL HISTORY: PAIN IN LEFT SHOULDER--M25.512. TECHNIQUE: 2D digital imaging was performed. Three views. COMPARISON: CR LEFT SHOULDER COMPLETE from 08/17/2010 FINDINGS: BONES: There is a nondisplaced fracture involving the anterior rim of the glenoid. No additional fra ctures are seen. No bony destructive lesion is seen. JOINTS: No dislocation present. There is mild spurring at the AC joint and glenoid. SOFT TISSUE: Fibrotic changes are noted in the lungs. No pneumothorax. IMPRESSION: nondisplaced fracture of the anterior glenoid. DATA REPOSITORY: RADIATION DOSE DELIVERED:
== END ==
PROVIDERS: PCP Family Medicine; Visit Provider Nurse Practitioner Family
DX: M25.512 Pain in left shoulder (principal); S42.145A Nondisplaced fracture of glenoid cavity of scapula, left shoulder, initial encounter for closed fracture; X58.XXXA Exposure to other specified factors, initial encounter
CPT/HCPCS: 73030

== ENCOUNTER 2021-12-16 14:47 | Outpatient (CLI) | payer MEDICARE, SELFPAY ==
--- NOTE | 2021-12-16 14:30 | DI.RAD_ITS ---
Exam(s) XR SHOULDER LT COMPLETE 2+V EXAM: XR SHOULDER LT COMPLETE 2+V CLINICAL HISTORY: LEFT SHOULDER PAIN. TECHNIQUE: 2D digital imaging was performed of the left shoulder. Two images were obtained. AP, an d Y views were obtained. COMPARISON: CR XR SHOULDER LT COMPLETE 2+V from 12/08/2021 FINDINGS: BONES: There has been no change in the appearance of the nondisplaced fracture of the anterior glenoi d. No bony destructive lesion is seen. JOINTS: No dislocation present. Mild degenerative changes are seen at the acromioclavicular joint. SOFT TISSUE: Normal. IMPRESSION: Stable glenoid fracture. DATA REPOSITORY: RADIATION DOSE DELIVERED:
== END 2021-12-16 14:48 | disposition home or self-care (01) ==
LOC: DIORS 14:48
PROVIDERS: PCP Family Medicine; Referring Provider Family Medicine; Visit Provider Student in an Organized Health Care Education/Training Program
DX: S42.142A Displaced fracture of glenoid cavity of scapula, left shoulder, initial encounter for closed fracture (principal); S42.152A Displaced fracture of neck of scapula, left shoulder, initial encounter for closed fracture; X58.XXXA Exposure to other specified factors, initial encounter
CPT/HCPCS: 99204; 73030

== ENCOUNTER 2022-01-28 14:41 | Outpatient (CLI) | payer MEDICARE, SELFPAY ==
--- NOTE | 2022-01-28 14:30 | DI.RAD_ITS ---
Exam(s) XR SHOULDER LT COMPLETE 2+V EXAM: XR SHOULDER LT COMPLETE 2+V CLINICAL HISTORY: glenoid fx f/u. TECHNIQUE: 2D digital imaging was performed of the left shoulder. Two images were obtained. AP and Y-view views were obtained. COMPARISON: CR XR SHOULDER LT COMPLETE 2+V from 12/16/2021 FINDINGS: BONES: There has been no change in alignment of the anterior glenoid fracture. No new fractures iden tified. No bony destructive lesion is seen. JOINTS: There is mild inferior subluxation of the humeral head relative to the glenoid. Mild degener ative changes are seen at the acromioclavicular joint. SOFT TISSUE: Normal. IMPRESSION: Stable glenoid fracture. DATA REPOSITORY: RADIATION DOSE DELIVERED:
== END 2022-01-28 14:42 | disposition home or self-care (01) ==
LOC: DIORS 14:42
PROVIDERS: PCP Family Medicine; Referring Provider Family Medicine; Visit Provider Student in an Organized Health Care Education/Training Program
DX: S42.152D Displaced fracture of neck of scapula, left shoulder, subsequent encounter for fracture with routine healing; S42.142D Displaced fracture of glenoid cavity of scapula, left shoulder, subsequent encounter for fracture with routine healing; X58.XXXD Exposure to other specified factors, subsequent encounter
CPT/HCPCS: 99213; 73030

== ENCOUNTER → 2022-02-14 11:19 | Outpatient (CLI) | payer MEDICARE, SELFPAY ==
--- NOTE | 2022-02-14 11:30 | DI.RAD_ITS ---
Exam(s) XR CHEST 2V PA LATERAL EXAM: XR CHEST 2V PA LATERAL CLINICAL HISTORY: HEMOPTYSIS TECHNIQUE: 2D digital imaging was performed. COMPARISON: CT CT chest PE CTA from 05/06/2018 FINDINGS: HEART: Normal size. Aorta: Not dilated PULMONARY VASCULATURE: Normal. LUNGS: Mild chronic interstitial changes the other clear. PLEURAL SPACE: No pleural effusion or pneumothorax. BONE:Unremarkable for age. IMPRESSION: No acute abnormality. DATA REPOSITORY: RADIATION DOSE DELIVERED:
--- NOTE | 2022-02-14 11:57 | DI.VRAD_ITS ---
PROCEDURE INFORMATION: Exam: XR Chest Exam date and time: 02/14/2022 11:41 AM Age: 76 years old Clinical indication: Other: Hemoptysis TECHNIQUE: Imaging protocol: Radiologic exam of the chest. Views: 2 views. COMPARISON: CT chest PE CTA 05/06/2018 2:38 PM FINDINGS: Lungs: Unremarkable. No consolidation. Pleural spaces: Unremarkable. No pleural effusion. No pneumothorax. Heart/Mediastinum: Unremarkable. No cardiomegaly. Vasculature: Aortic calcifications. 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 IMPRESSION: No acute findings Dictated and Authenticated by: Unique Tran MD. Ordering:MARCEL DONAHUE MD
== END ==
PROVIDERS: PCP Family Medicine; Visit Provider Nurse Practitioner Family
DX: R04.2 Hemoptysis (principal)
CPT/HCPCS: 71046

== ENCOUNTER 2022-02-14 15:19 | Emergency (ER) | payer MEDICARE, SELFPAY ==
[2022-02-14 15:35] VITALS: BP 131/77; PULSE 73; RESP 18; TEMP 36.5; O2SAT 92
--- NOTE | 2022-02-14 16:00 | DI.CT_ITS ---
Exam(s) CT CHEST PE CTA EXAM: CT CHEST PE CTA CLINICAL HISTORY: Hemoptysis. TECHNIQUE: Imaging Protocol: Axial CT angiography was performed with multi-slice acquisition and mu lti-planar reconstructions as well as axial, coronal and sagittal MIP reconstructions. CONTRAST MATERIAL: Intravenous: Omnipaque 350 Contrast volume:100 ml COMPARISON: CT CT chest PE CTA from 05/06/2018 CR,XR XR CHEST 2V PA LATERAL from 02/14/2022 FINDINGS: Pulmonary Arteries: No evidence of filling defect to suggest pulmonary emboli. Tracheobronchial tree: Patent where visualized. Mediastinum and Shavonne: No dominant adenopathy or fluid collection. Pulmonary parenchyma: Limited evaluation due to respiratory motion and expiratory changes. Question of increased interstitial markings could represent chronic fibrotic changes versus pulmonary edema. No consolidation or dominant measurable mass. Pleura: No effusion or pneumothorax. Heart: The heart is not dilated. coronary artery calcifications are seen. Aorta: Thoracic aorta non-dilated. No aneurysm. No dissection. Atherosclerotic changes. Upper abdomen: Left renal cyst. Status post cholecystectomy. 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 Bones: Unremarkable for age. IMPRESSION: No evidence of pulmonary embolism. Question of mild pulmonary edema. RADIATION DOSE DELIVERED: 503.48mGy.cm Total DLP DATA REPOSITORY: All CT scans at this facility are submitted to the National Radiology Data Registry (NRDR) Dose Index Registry (DIR) with the [employer] (ACR). RADIATION OPTIMIZATION: All CT scans at this facility use at least one of these dose optimization te chniques: automated exposure control; mA and/or kV adjustment per patient size (includes targeted exa ms where dose is matched to clinical indication); or iterative reconstruction.
--- NOTE | 2022-02-14 16:06 | ED.GENADUL_ITS ---
Discharge Plan Disposition Patient Disposition: Home Condition: Stable Discharge Details Clinical Impression: Cough with hemoptysis Primary Care Provider: Eddie Stubbs ED Provider: Rosario Lim Home Meds and New Rx's Prescriptions: Continued vitamin B complex [B Complex-Vitamin B12] Tablet 1 tab PO DAILY valsartan-hydrochlorothiazide [Diovan HCT] 160-12.5 mg tablet 1 tab PO DAILY cholecalciferol (vitamin D3) 2,000 unit capsule 2,000 unit PO DAILY [id number] [Glucosamine Daily Complex] 1,500-400-100 mg-unit-mg tablet 1 tab PO DAILY amlodipine 2.5 mg tablet 2.5 mg PO DAILY Discharge Instructions Instructions: Hemoptysis (ED) Additional Instructions: No evidence of blood clots in her lungs on CT. Labs are largely within normal limits. COVID and flu swabs are negative. Follow up with primary care provider in 3-5 days. Return to ED sooner if any worsening or concerns. Increase oral fluids. Referrals: Eddie Stubbs [Primary Care Provider] - 3 days Medical Decision Making 76-year-old female presents to the ER with chief complaint of hemoptysis which began this morning after getting out of shower. She reports that she feels like she is starting to have a cold coming on. She was seen at [facility] had a D- dimer of 652 and was instructed to present to the ER for further evaluation. She denies any leg swelling she did go to [place] last week which is approximately 5-[address]. She denies any chest pain she is not on any blood thinners. IV, CMP CTA rule out PE ordered. PT and PTT. Also consider fluid swab. Patient sent here from [facility] after having a D-dimer of 652 which according to age-adjusted D-dimer is within normal limits. However patient is having some hemoptysis which began this morning. Due to the hemoptysis will order a chest CT. CT shows no PE however there is some questionable interstitial edema. Patient d id have labs drawn today at [facility] CBC within normal limits, did do a CMP she does have some elevated BUN and creatinine. BUN 21 creatinine 1.2, sodium potassium within normal limits. Negative rapid COVID and negative flu here in the department. Patient has no increased work of breathing appears nontoxic. Explanations could include postnasal drip, or GI source. I did discuss follow- up with PCP for further evaluation she verbalized understanding. This text was generated using [employer] dictation system, please disregard any oddities of phrase or misspellings. Medical Records Medical records reviewed: Yes I reviewed the patient's medical records. Imaging Data Radiologic Study: Imaging: CT Scan Radiologist's impression: FINDINGS: Pulmonary arteries: Normal. No pulmonary emboli. Aorta: Aortic calcif ications. Celiac trunk and mesenteric arteries: 1.3 cm calcified splenic artery aneurysm. Lungs: Mild diffuse peripheral interstitial prominence could be due to edema Pleural spaces: Unremarkable. No pneumothorax. No pleural effusion. Heart: Coronary artery calcifications. Lymph nodes: Unremarkable. No enlarged lymph nodes. Gallbladder and bile ducts: Cholecystectomy. Bones/joints: Unremarkable. No acute fracture. Soft tissues: Unremarkable. 1. No pulmonary embolism identified 2. Possible mild edema and other incidental findings as described Thank you for allowing us to participate in the care of your patient. Dictated and Authenticated by: Unique Tran MD Lab Data Lab results reviewed: Yes I reviewed the patient's lab results. Labs: Laboratory Tests Range/Units 02/14/22 02/14/22 16:45 16:45 PT (9.3-11.0) sec 9.9 INR (0.9-1.1) 1.0 APTT (21.0-27.5) sec 26.3 Sodium (136-145) mmol/L 137 Potassium (3.5-5.1) mmol/L 3.7 Chloride (98-107) mmol/L 101 Carbon Dioxide (21.0-32.0) mmol/L 31.6 Anion Gap (3-11) mmol/L 4.4 BUN (7-18) mg/dL 21 H Creatinine (0.55-1.02) mg/dL 1.2 H Est GFR (CKD-EPI 2020) (mL/min/1.73m2) 47.50 Glucose (74-106) mg/dL 101 Calcium (8.5-10.1) mg/dL 9.3 Total Bilirubin (0.2-1.0) mg/dL 0.4 AST (15-37) U/L 30 ALT (14-59) U/L 32 Alkaline Phosphatase (46-116) U/L 78 Total Protein (6.4-8.2) g/dL 7.7 Albumin (3.4-5.0) g/dL 3.8 Sign Out No HPI General Mode of arrival: ambulatory . Date/Time Provider Initiated Documentation: 02/14/22 15:34 . Limitations to Documentation: no limitations . Information obtained by: patient, RN notes reviewed and old records reviewed . HPI Narrative: 76-year-old female presents to the ER with chief complaint of hemoptysis which began this morning after getting out of shower. She reports that she feels like she is starting to have a cold coming on. She was seen at [facility] had a D- dimer of 652 and was instructed to present to the ER for further evaluation. She denies any leg swelling she did go to [place] last week which is approximately [address]. She denies any chest pain she is not on any blood thinners. She did have a chest x-ray today which was within normal limits. No history of blood clots. She does have a past medical history of hypertension, hyperlipidemia, depression and mitral valve disorder. Related Data Home Medications Medication Instructions Recorded Confirmed cholecalciferol (vitamin D3) 50 2,000 unit PO DAILY 02/07/18 01/28/22 mcg (2,000 unit) capsule glucosamine [id number] 1 tab PO DAILY 02/07/18 01/28/22 juanita 1,500 mg-400 unit-100 mg tablet (Glucosamine Daily Complex) valsartan 160 1 tab PO DAILY 02/07/18 01/28/22 mg-hydrochlorothiazide 12.5 mg tablet (Diovan HCT) amlodipine 2.5 mg tablet 2.5 mg PO DAILY 12/10/21 01/28/22 vitamin B complex (B 1 tab PO DAILY 01/28/22 01/28/22 Complex-Vitamin B12 tablet) Allergies Allergy/AdvReac Type Severity Reaction Status Date / Time NATHALIE Inhibitors Allergy Verified 01/28/22 14:37 enalapril Allergy Verified 01/28/22 14:37 feathers Allergy Verified 01/28/22 14:37 house dust Allergy Verified 01/28/22 14:37 General Stated Complaint: [employer] TONY: 3 Review of Systems All systems reviewed & are unremarkable except as noted in HPI and below Cardiovascular Cardiovascular: Denies chest pain and Denies dyspnea Respiratory Respiratory: Reports hemoptysis and Denies dyspnea Gastrointestinal Gastrointestinal: Denies melena and Denies hematochezia [facility] All Active Problems (Updated 02/14/22 @ 18:06 by Rosario Lim NP) Cough with hemoptysis (Acute) Glenoid fracture of shoulder (Acute 12/04/21) left Encounter for screening colonoscopy (Acute) History of tobacco abuse (Chronic) Hypertension (Chronic) Mitral valve disorder (Chronic) Obesity (Chronic) Hyperlipidemia (Chronic) Depression (Chronic) Medical History History of acute pancreatitis HPV (human papilloma virus) infection Mild memory disturbance Osteopenia Rosacea Spinal stenosis Social History Smoking/Tobacco Use Status: Former Tobacco Use Smoking risk assessment performed?: Yes Alcohol Intake: never Drug use: Never Substance use type: does not use Current gender identity: female Do you feel safe at home: Yes Do you feel safe in your relationship?: Yes Exam Narrative Exam Narrative: Constitutional: Alert and oriented x3. Appears stated age. Normal body habitus. Head: Normocephalic, no trauma. Eyes: Pupils PERRL, Red reflex noted, EOM's intact. Eyelids symmetrical without lesions, discharge, or swelling. ENT: Bilateral TM's WNL, External ear normal to inspection, no mastoid TTP, swelling, or erythema, Nasal turbinates WNL, no nasal discharge. Normal dentition, Posterior pharynx WNL, no exudate. Chest: RRR, Normal S1, S2, distal pulses intact. Resp: Lungs clear to auscultation bilaterally, no wheezes, rales, or rhonchi. Abdomen: Soft, non-distended, Normoactive bowel sounds all 4 quads. Musculoskeletal: Normal gait, 5/5 strength to all four extremities. Skin: No suspicious rashes or lesions. Capillary refill less than 2 sec. Neurologic: Cranial nerves II-XII intact. Alert and oriented x 3. Motor: No deficits noted. Sensory: Intact bilaterally all 4 extremities. Reflexes: DTR's intact bilaterally.. Hematologic/Lymphatic: No ecchymosis, no lymphadenopathy. Course Vital Signs Vital signs: Vital Signs Temperature 36.5 C 02/14/22 15:35 Pulse 73 02/14/22 15:35 Respiratory Rate 18 02/14/22 15:35 Blood Pressure 131/77 02/14/22 15:35 Pulse Oximetry 92 02/14/22 15:35 Temperature 36.5 C 02/14/22 15:35 Temperature Source Temporal Artery Scan 02/14/22 15:35 Pulse 73 02/14/22 15:35 Respiratory Rate 18 02/14/22 15:35 Blood Pressure 131/77 02/14/22 15:35 Blood Pressure Position Sitting 02/14/22 15:35 Pulse Oximetry 92 02/14/22 15:35 Oxygen Delivery Method Room Air 02/14/22 15:35 Oxygen Flow Rate 0 02/14/22 15:35
[2022-02-14 17:11] LABS: PTT Activated 26.3 sec (21.0-27.5); Prothrombin Time 9.9 sec (9.3-11.0)
[2022-02-14 17:14] VITALS: RESP 18
[2022-02-14 17:15] LABS: ALT 32 U/L (14-59); AST 30 U/L (15-37); Albumin 3.8 g/dL (3.4-5.0); Alkaline Phosphatase 78 U/L (46-116); Anion Gap 4.4 mmol/L (3-11); BUN 21 mg/dL (7-18); Bilirubin, Total 0.4 mg/dL (0.2-1.0); CO2 31.6 mmol/L (21.0-32.0); CREATININE 1.2 mg/dL (0.55-1.02); Calcium 9.3 mg/dL (8.5-10.1); Chloride 101 mmol/L (98-107); Glucose 101 mg/dL (74-106); Potassium 3.7 mmol/L (3.5-5.1); Sodium 137 mmol/L (136-145); Total Protein 7.7 g/dL (6.4-8.2)
[2022-02-14] MEDS: Normal Saline Flush 10 ML SYR IVP (17:34)
[2022-02-14] MEDS: Normal Saline - Diluent 50 ML VIAL IV (17:34)
[2022-02-14] MEDS: Omnipaque 350 MG/ML 500 ML BTL-Imaging package IJ (17:35)
--- NOTE | 2022-02-14 17:56 | DI.VRAD_ITS ---
PROCEDURE INFORMATION: Exam: CTA Chest With Contrast Exam date and time: 02/14/2022 5:24 PM Age: 76 years old Clinical indication: Other: Hemoptysis TECHNIQUE: Imaging protocol: Computed tomographic angiography of the chest with contrast. 3D rendering (Not supervised by radiologist): MIP and/or 3D reconstructed images were created by the technologist. Contrast material: OMNIPAQUE 350; Contrast volume: 100 ml; Contrast route: INTRAVENOUS (IV); COMPARISON: CT chest PE CTA 05/06/2018 2:38 PM FINDINGS: Pulmonary arteries: Normal. No pulmonary emboli. Aorta: Aortic calcifications. Celiac trunk and mesenteric arteries: 1.3 cm calcified splenic artery aneurysm. Lungs: Mild diffuse peripheral interstitial prominence could be due to edema Pleural spaces: Unremarkable. No pneumothorax. No pleural effusion. Heart: Coronary artery calcifications. Lymph nodes: Unremarkable. No enlarged lymph nodes. Gallbladder and bile ducts: Cholecystectomy. Bones/joints: Unremarkable. No acute fracture. Soft tissues: Unremarkable. IMPRESSION: 1. No pulmonary embolism identified 2. Possible mild edema and other incidental findings as described Dictated and Authenticated by: Unique Tran MD. Ordering:MADDI Ponce MD
== END 2022-02-14 18:18 | disposition home or self-care (01) ==
PROVIDERS: Emergency Provider Registered Nurse Emergency; PCP Family Medicine
DX: R04.2 Hemoptysis (principal); Z87.891 Personal history of nicotine dependence; Z87.19 Personal history of other diseases of the digestive system
CPT/HCPCS: 36415; 71275; 80053; 99285; 71046; 85610; 85730; 99284

== ENCOUNTER 2022-02-14 15:24 | Outpatient (REF) | payer MEDICARE, SELFPAY ==
[2022-02-14 13:36] LABS: Abs Immature Grans 0.02 10^3/uL (0.0-0.06); Absolute Basophil Count 0.04 10^3/uL (0.0-0.2); Absolute Eosinophil Count 0.28 10^3/uL (0.0-0.7); Absolute Lymphocyte Count 1.84 10^3/uL (1.2-3.4); Absolute Monocyte Count 0.75 10^3/uL (0.1-0.8); Absolute Neutrophil Count 3.99 10^3/uL (1.2-6.7); Basophils % 0.6; HCT 43.4 % (36.0-46.0); HGB 14.4 g/dL (11.2-15.7); Immature Grans % 0.3; Lymphocytes % 26.6; MCH 29.6 pg (27.0-33.0); MCHC 33.2 % (32.0-36.0); MCV 89 fL (80-95); MPV 10.4 fL (8.0-11.0); Monocytes % 10.8; Neutrophils % 57.7; Platelet Count 302 10^3/uL (130-400); RBC 4.86 10^6/uL (3.93-5.22); RDW 12.4 % (11.7-14.6); RDW-SD 40.7 fL; WBC 6.92 10^3/uL (4.4-10.8)
[2022-02-14 14:03] LABS: D-Dimer 652 ng/mlFEU (<500)
== END 2022-02-14 15:25 | disposition home or self-care (01) ==
LOC: LBN 15:24
PROVIDERS: PCP Family Medicine; Visit Provider Nurse Practitioner Family
DX: S42.145A Nondisplaced fracture of glenoid cavity of scapula, left shoulder, initial encounter for closed fracture (principal)
CPT/HCPCS: 85025; 85379

== ENCOUNTER → 2022-03-05 02:02 | Outpatient (CLI) | payer MEDICARE, SELFPAY ==
--- NOTE | 2022-03-05 15:03 | DI.MAMMO_ITS ---
Exam(s) MAMMO SCREENING EXAM: MAMMO SCREENING CLINICAL HISTORY: SCREENING, Z12.39 TECHNIQUE: Bilateral full field digital CC and MLO mammographic images were obtained with 3D tomosyn thesis and utilizing computer aided detection (CAD). COMPARISON: Available for comparison. FINDINGS: Masses/Architectural Distortion: None seen. Microcalcifications: No suspicious pleomorphic-type are seen. Skin Thickening/Nipple Retraction: None. IMPRESSION: 1. No significant interval change with no specific features of malignancy noted. 2. Unless there is more urgent need, screening mammography is recommended, as per [employer] guidelines. BI-RADS Category 1 - Negative Breast Density - Category B - Scattered areas of fibroglandular density Breast density category C or D implies that the patient has dense breast tissue. Dense breast tissue is very common and is not abnormal but dense breast tissue can make it harder to find cancer on a ma mmogram. Also, dense breast tissue may increase their breast cancer risk. This information about the result of the mammogram report was provided to the patient to raise their awareness. Use this report when you speak with the patient about their risks for breast cancer, which includes their family hist ory. At that time, you may recommend for more screening tests (Ultrasound or MRI) as they might be us eful based on their risk. A negative radiographic report should not delay biopsy if a dominant or clinically suspicious mass is present. Up to ten percent of cancers are not identified on mammography. A negative report may reinforce clinical impression. Adenosis and dense breasts may obscure an underlying neoplasm. False positive reports average 6 to 10%. Patient will receive a letter notifying them of these results.
== END ==
PROVIDERS: PCP Family Medicine; Visit Provider Family Medicine
DX: Z12.31 Encounter for screening mammogram for malignant neoplasm of breast (principal)
CPT/HCPCS: 77063; 77067

== ENCOUNTER 2022-03-13 10:56 | Outpatient (REF) | payer MEDICARE, SELFPAY ==
[2022-03-13 18:37] LABS: CREATININE 0.7 mg/dL (0.55-1.02); Calculated LDL 163 mg/dL (<100); Cholesterol 252 mg/dL (<200); HDL Cholesterol 70 mg/dL (40-60); Triglyceride 95 mg/dL (<150)
== END 2022-03-13 10:57 | disposition home or self-care (01) ==
LOC: NCHCN 10:56
PROVIDERS: PCP Family Medicine; Visit Provider Family Medicine
DX: E78.5 Hyperlipidemia, unspecified (principal); N28.9 Disorder of kidney and ureter, unspecified
CPT/HCPCS: 80061; 82565

== ENCOUNTER 2023-03-19 09:55 | Outpatient (REF) | payer MEDICARE, SELFPAY ==
[2023-03-19 15:31] LABS: Anion Gap 9.3 mmol/L (3-11); BUN 13 mg/dL (7-18); CO2 26.7 mmol/L (21.0-32.0); CREATININE 0.5 mg/dL (0.55-1.02); Calcium 9.1 mg/dL (8.5-10.1); Chloride 106 mmol/L (98-107); Estimated GFR 97.75 (mL/min/1.73m2); Glucose 105 mg/dL (74-106); Sodium 142 mmol/L (136-145)
== END 2023-03-19 09:56 | disposition home or self-care (01) ==
LOC: NCHCN 09:55
PROVIDERS: PCP Family Medicine; Visit Provider Family Medicine
DX: I10 Essential (primary) hypertension (principal)
CPT/HCPCS: 80048

== ENCOUNTER → 2023-03-31 01:37 | Outpatient (CLI) | payer MEDICARE, SELFPAY ==
--- NOTE | 2023-03-31 | DI.MRI_ITS ---
Exam(s) MR BRAIN WO EXAM: MR BRAIN WO CLINICAL HISTORY: MILD MEMORY DISTURBANCE R41.3 W/ HTN TECHNIQUE: Multiplanar multisequence MRI of the brain was performed. COMPARISON: No exams were available for comparison FINDINGS: VENTRICLES AND EXTRA AXIAL SPACES: Normal in size and morphology for the patient's age. MIDLINE SHIFT: None. CEREBRAL PARENCHYMA: No focus of restricted diffusion to suggest acute infarct. No space-occupying le rebecca identified. There are areas of hyperintense signal seen in the white matter on the FLAIR and T2 weighted images consistent with small vessel ischemic disease. HEMORRHAGE: None. BRAINSTEM/CEREBELLUM: Normal. CALVARIUM: Normal. VISUALIZED PARANASAL SINUSES/MASTOIDS:Clear. [place]: Normal flow void. PITUITARY GLAND: Unremarkable. OTHER FINDINGS: None. IMPRESSION: Cerebral atrophy and chronic microvascular ischemic disease. DATA REPOSITORY:
== END ==
PROVIDERS: PCP Family Medicine; Visit Provider Family Medicine
DX: R41.3 Other amnesia (principal); G31.89 Other specified degenerative diseases of nervous system; I67.89 Other cerebrovascular disease; I10 Essential (primary) hypertension
CPT/HCPCS: 70551

== ENCOUNTER 2023-06-30 14:46 | Outpatient (REF) | payer MEDICARE, SELFPAY ==
[2023-06-30 16:34] LABS: ALT 32 U/L (14-59); AST 25 U/L (15-37); Albumin 3.7 g/dL (3.4-5.0); Alkaline Phosphatase 57 U/L (46-116); BUN 11 mg/dL (7-18); Bilirubin, Total 0.4 mg/dL (0.2-1.0); CREATININE 0.6 mg/dL (0.55-1.02); Chloride 105 mmol/L (98-107); Estimated GFR 92.97 (mL/min/1.73m2); Glucose 95 mg/dL (74-106); Potassium 4.3 mmol/L (3.5-5.1); Sodium 142 mmol/L (136-145); Total Protein 6.6 g/dL (6.4-8.2)
== END 2023-06-30 14:47 | disposition home or self-care (01) ==
LOC: NCHCN 14:46
PROVIDERS: PCP Family Medicine; Visit Provider Student in an Organized Health Care Education/Training Program
DX: E78.5 Hyperlipidemia, unspecified (principal)
CPT/HCPCS: 80053

== ENCOUNTER 2023-07-02 10:25 | Outpatient (REF) | payer MEDICARE, SELFPAY ==
[2023-07-02 14:55] LABS: Abs Immature Grans 0.01 10^3/uL (0.0-0.06); Absolute Basophil Count 0.06 10^3/uL (0.0-0.2); Absolute Eosinophil Count 0.13 10^3/uL (0.0-0.7); Absolute Lymphocyte Count 1.93 10^3/uL (1.2-3.4); Absolute Monocyte Count 0.62 10^3/uL (0.1-0.8); Absolute Neutrophil Count 4.89 10^3/uL (1.2-6.7); Basophils % 0.8; Eosinophils % 1.7; HCT 41.7 % (36.0-46.0); HGB 13.9 g/dL (11.2-15.7); Immature Grans % 0.1; Lymphocytes % 25.3; MCH 30.2 pg (27.0-33.0); MCHC 33.3 % (32.0-36.0); MCV 91 fL (80-95); MPV 10.4 fL (8.0-11.0); Monocytes % 8.1; Platelet Count 231 10^3/uL (130-400); RDW 13.1 % (11.7-14.6); RDW-SD 43.4 fL; WBC 7.64 10^3/uL (4.4-10.8)
== END 2023-07-02 10:26 | disposition home or self-care (01) ==
LOC: NCHCN 10:25
PROVIDERS: PCP Family Medicine; Referring Provider Student in an Organized Health Care Education/Training Program; Visit Provider Student in an Organized Health Care Education/Training Program
DX: R19.5 Other fecal abnormalities (principal)
CPT/HCPCS: 85025

== ENCOUNTER → 2023-08-11 12:18 | Outpatient (BNVA) | payer MEDICARE, SELFPAY | PROVIDERS: PCP Student in an Organized Health Care Education/Training Program; Referring Provider Student in an Organized Health Care Education/Training Program; Visit Provider Student in an Organized Health Care Education/Training Program | DX: K92.2 Gastrointestinal hemorrhage, unspecified (principal); H53.50 Unspecified color vision deficiencies; R19.4 Change in bowel habit | CPT/HCPCS: 99214 ==

== ENCOUNTER 2023-09-08 07:00 | Day surgery (SDC) | payer MEDICARE, SELFPAY ==
[2023-09-08 07:32] VITALS: BP 125/74; PULSE 63; RESP 16; TEMP 36.6; O2SAT 96
[2023-09-08] MEDS: Lactated Ringers 1,000 ML 75 ML IV (07:34)
--- NOTE | 2023-09-08 07:38 | W.ANESPRE ---
General Info Date of Service Date Performed: 09/08/23 Height: 5 ft 2.5 in Weight: 85.842 kg Body Mass Index (BMI): 34.0 Surgical Procedure: Operation Date: 09/08/23 08:35 Proposed Procedure Side Surgeon p Colonoscopy/Gastroscopy Avinash Elias MD Meds Allergies and Home Medications Allergies Allergy/AdvReac Type Severity Reaction Status Date / Time NATHALIE Inhibitors Allergy Unknown Verified 09/08/23 07:11 enalapril Allergy Unknown Verified 09/08/23 07:11 feathers Allergy Wheezing Verified 09/08/23 07:11 house dust Allergy Wheezing Verified 09/08/23 07:11 Home Medication Medication Instructions Recorded cholecalciferol (vitamin D3) 50 2,000 unit PO DAILY 02/07/18 mcg (2,000 unit) capsule glucosamine [id number] 1 tab PO DAILY 02/07/18 juanita 1,500 mg-400 unit-100 mg tablet (Glucosamine Daily Complex) amlodipine 2.5 mg tablet 2.5 mg PO DAILY 12/10/21 vitamin B complex (B 1 tab PO DAILY 01/28/22 Complex-Vitamin B12 tablet) hydrochlorothiazide 12.5 mg tablet 12.5 mg PO DAILY 08/02/23 rosuvastatin 10 mg tablet 10 mg PO DAILY 08/02/23 valsartan 160 mg tablet 160 mg PO DAILY 08/02/23 Current Visit Medications: Current Medications Generic Name Dose Route Start Last Admin Trade Name Freq PRN Reason Stop Dose Admin Ringer's Solution 1,000 mls @ 75 mls/hr 09/08/23 06:00 09/08/23 07:34 IV 09/08/23 23:59 75 mls/hr INFUSION ROSENDO Administration IV Miscellaneous Supplies 1 each 09/08/23 06:00 Iv Access IV 09/08/23 23:59 DIRECTED ROSENDO Sodium Chloride 0 ml 09/08/23 06:00 Normal Saline Flush 10 Ml Syr IV 09/08/23 23:59 PRN PRN Sodium Chloride 0 ml 09/08/23 06:00 Normal Saline 10 Ml Vial IJ 09/08/23 23:59 DIRECTED PRN Sterile Water 0 ml 09/08/23 06:00 Water,Injection,Sterile 10 Ml Vial IJ 09/08/23 23:59 DIRECTED PRN PFSH Active Problems Active Problems: Problem Status Onset Code GI bleed K92.2 Glenoid fracture of shoulder 12/04/21 S42.143A, S42.153A Encounter for screening colonoscopy Z12.11 History of tobacco abuse Z87.891 H/O colonoscopy 02/25/09 Z98.890 Hypertension I10 Mitral valve disorder I05.9 Obesity E66.9 Hyperlipidemia E78.5 Depression F32.9 Medical History Medical History History of panic attacks Dark stools Cerebral atherosclerosis Essential hypertension Hearing loss Cerebral atrophy Minimal cognitive impairment Alzheimers disease 10[place]21[place] [facility] [place] Cris Higgins, Ph.D. 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) History of acute pancreatitis Rosacea Mild memory disturbance Osteopenia Spinal stenosis HPV (human papilloma virus) infection Tobacco Smoking/Tobacco Use Status: Former Tobacco Use Alcohol Alcohol Intake: former Substance Use Substance use: Never Substance use type: does not use Vital Signs and Lab Results Vital Signs Most Recent Vital Signs in EMR: Most Recent Vital Signs Temp Pulse Resp BP Pulse Ox 36.6 C 63 16 125/74 96 09/08/23 07:32 09/08/23 07:32 09/08/23 07:32 09/08/23 07:32 09/08/23 07:32 Lab Results Blood Type / Crossmatch: No Data to Display Complete Blood Count: No Data to Display Complete Metabolic Panel: No Data to Display Liver Function Panel: No Data to Display Coagulation Panel: No Data to Display Cardiac Panel: No Data to Display Arterial Blood Gas: No Data to Display Venous Blood Gas: No Data to Display Pancreas Panel: No Data to Display Thyroid Panel: No Data to Display Infectious Disease: No Data to Display Blood Cultures: No Data to Display Toxicology Panel: No Data to Display Imaging and Studies Imaging and Studies Study information below may be from another EMR and interpreted by another provider. Please see original notes in EMR for more complete details. Echocardiogram Summary: Patient Name: ARYA MORAN Unit #: [id number] Loc: DI Ordering Provider: Eddie Stubbs Status: REG CLI Primary Care Provider: Eddie Stubbs Date of Exam: 05/24/18 Sex: F : 1945 Age: 72 Exam(s) a US:US echocardiogram *[facility]* *[facility]* [address] [place] [address] Date of study: 05/24/2018 Transthoracic Echocardiography M-mode, complete 2D, complete spectral Doppler, and color Doppler *STUDY CONCLUSIONS* Summary: 1. Left ventricle: The cavity size was normal. Wall thickness was increased in a pattern of mild LVH. Systolic function was normal. The estimated ejection fraction was 60-65%. Wall motion was normal; there were no regional wall motion abnormalities. 2. Mitral valve: Mildly thickened leaflets. No echocardiographic evidence for prolapse. There was mild regurgitation. 3. Right ventricle: The cavity size was normal. Wall thickness was normal. Systolic function was normal. *PATIENT PRESENTATION* Height: 162.6cm ((64in) ) S/D Pressure: 140 / 76 Weight: 93kg ((204.6lb) ) BSA: 2.09m^2 Test start time: 02:15 PM. Test stop time: 03:10 PM. PERFORMING Unknown PERFORMING [facility] POLITICAL ORGANIZER Stephania Campos RT ([employer])(CT), [facility] ORDERING Eddie Stubbs REFERRING Eddie Stubbs *PROCEDURE DATA* Procedure information: The patient was identified by two identifiers. This study was interpreted by [facility]. Pertinent images and digital data are archived for permanent storage and are available for subsequent review. No prior study was available for comparison. Study status: Routine. Transthoracic echocardiography. M-mode, complete 2D, complete spectral Doppler, and color Doppler. A Transthoracic Echocardiogram was performed. Scanning was performed from the parasternal, apical, subcostal, and suprasternal notch acoustic windows. Images were obtained using an [id number] cardiac ultrasound machine. Image quality was adequate. Study completion: The patient tolerated the procedure well. There were no complications. History: PMH: Mitral valve disorder i34.8 *CARDIAC ANATOMY* Left ventricle: The cavity size was normal. Wall thickness was increased in a pattern of mild LVH. Systolic function was normal. The estimated ejection fraction was 60-65%. Wall motion was normal; there were no regional wall motion abnormalities. Some parameters suggest diastolic dysfunction. Aortic valve: Trileaflet; normal thickness, mildly calcified leaflets. Mobility was not restricted. Doppler: Transvalvular velocity was within the normal range. There was no stenosis. There was no significant regurgitation. VTI ratio of LVOT to aortic valve: 0.68. Valve area (VTI): 2.1cm^2. Indexed valve area (VTI): 1cm^2/m^2. Peak velocity ratio of LVOT to aortic valve: 0.69. Valve area (Vmax): 2.1cm^2. Indexed valve area (Vmax): 1cm^2/m^2. Mean velocity ratio of LVOT to aortic valve: 0.71. Valve area (Vmean): 2.2cm^2. Indexed valve area (Vmean): 1cm^2/m^2. Mean gradient (S): 4mm Hg. Peak gradient (S): 7.1mm Hg. Aorta: Aortic root: The aortic root was normal in size. Ascending aorta: The ascending aorta was normal in size. Mitral valve: Mildly thickened leaflets. Mobility was not restricted. No echocardiographic evidence for prolapse. Doppler: Transvalvular velocity was within the normal range. There was no evidence for stenosis. There was mild regurgitation. Valve area by pressure half-time: 3.6cm^2. Indexed valve area by pressure half-time: 1.7cm^2/m^2. Peak gradient (D): 3.8mm Hg. Left atrium: The atrium was normal in size. Right ventricle: The cavity size was normal. Wall thickness was normal. Systolic function was normal. Pulmonic valve: Structurally normal valve. Doppler: Transvalvular velocity was within the normal range. There was no evidence for stenosis. There was trivial regurgitation. Tricuspid valve: Structurally normal valve. Doppler: Transvalvular velocity was within the normal range. There was no evidence for stenosis. There was no significant regurgitation. Pulmonary artery: Pulmonary systolic pressure was within the normal range, in the range of 25mm Hg to 30mm Hg. Right atrium: The atrium was normal in size. Pericardium: There was no pericardial effusion. Systemic veins: Inferior vena cava: Well visualized. The vessel was patent and normal in size. The respirophasic diameter changes were in the normal range (greater than or equal to 50%). Baseline ECG: Normal sinus rhythm. Measurements Left ventricle Value Reference LV ID, ED, PLAX 4.3 cm 3.5 - 6.0 LV ID, ES, PLAX 3.1 cm 2.1 - 4.0 LV PW thickness, ED, PLAX 1.0 cm LV end-diastolic volume, 1-p A2C 80 ml LV ejection fraction, 1-p A2C 65 % LV end-diastolic volume, 1-p A4C 76 ml LV ejection fraction, 1-p A4C 62 % LV e', lateral 0.101 m/sec LV E/e', lateral 10 LV e', medial 0.099 m/sec LV E/e', medial 10 LV e', average 0.1 m/sec LV E/e', average 10 Ventricular septum Value Reference IVS thickness, ED, PLAX 1.1 cm LVOT Value Reference LVOT ID, A-P 2.0 cm LVOT area 3.1 cm^2 LVOT peak velocity, S 0.92 m/sec LVOT mean velocity, S 0.68 m/sec LVOT VTI, S 21.0 cm LVOT peak gradient, S 3.4 mm Hg LVOT mean gradient, S 2 mm Hg Stroke volume (SV), LVOT DP 64 ml Stroke index (SV/bsa), LVOT DP 31 ml/m^2 Aortic valve Value Reference Aortic valve peak velocity, S 1.3 m/sec Aortic valve mean velocity, S 0.95 m/sec Aortic valve VTI, S 31.0 cm Aortic mean gradient, S 4 mm Hg Aortic peak gradient, S 7.1 mm Hg VTI ratio, LVOT/AV 0.68 Aortic valve area, VTI 2.1 cm^2 Velocity ratio, peak, LVOT/AV 0.69 Aortic valve area, peak velocity 2.1 cm^2 Velocity ratio, mean, LVOT/AV 0.71 Aortic valve area, mean velocity 2.2 cm^2 Aortic valve area/bsa, mean velocity 1 cm^2/m^2 Aorta Value Reference Aortic root ID, ED 2.7 cm Ascending aorta ID, A-P, S 3.5 cm Left atrium Value Reference Anesthesia Assessment and Plan Anesthesia History Personal History: No History of Anesthesia Complications Family History: No Family History of Anesthesia Complications Exercise Tolerance Exercise Tolerance: Metabolic Equivalents>4 Pertinent Negatives Pertinent Negatives: No Symptoms of GERD Cardiac & Pulmonary Exam Cardiac Exam: Normal S1/S2 Heart Sounds Pulmonary Exam: Clear Bilateral Breath Sounds Implantable Cardiac Device Does patient have a Pacemaker or an ICD?: No Airway Exam Known Difficult Airway: No Mallampati Class: 2 Mouth Opening: Normal (> 3cm) Thyromental Distance: Greater than 3 cm Neck Range of Motion: Full ROM Neck Circumference: Normal Teeth Condition: Normal Dentition and Removable Dentures/Plates Upper (partials) ASA Classification ASA Score: ASA 2 Emergency Case?: No NPO Status NPO Status: NPO Clears >2 hours, Solids >8 hours Anesthesia Plan Resuscitation Status: Full Code Anesthesia Technique: General Anesthesia Airway Planned: Natural Airway Monitors Used: Standard Monitors Preoperative Comments:: I did discuss with patient that, while we can proceed today, she does need another ECHO for any further elective procedures as her last was in 2019 and showed mild MR, our recommendations being repeat ECHO every 5 years for electives in the presence of mild valvular pathologies.
[2023-09-08 07:41] VITALS: BMI 34.0
--- NOTE | 2023-09-08 08:47 | STOM_PTH ---
PATIENT: Deena Corcoran LOC: [facility] U#:[id number] AGE/SX: 78/F ROOM: RE09/08/[address]: Avinash Elias : 1945 BED: DIS: 09/08/2023 SPEC #: [id number] RECD: 09/08/23 13:02 STATUS: [facility] #: [id number] BEVERLY: 09/08/23 08:[address]: Avinash Elias DEPT: Surgical Specimen RECD BY: Melissa Briseno ENTERED: 09/08/23 13:04 SP TYPE: STOMACH OTHR DR: Marquez Monteiro Tissues: 1 - STOMACH BIOPSY 2 - STOMACH BIOPSY 3 - ESOPHAGUS BIOPSY Procedures: GROSS AND MICRO LEVEL 4 Comments: [id number]
[2023-09-08 09:10] VITALS: BP 127/83; PULSE 55; RESP 16; TEMP 36.1; O2SAT 98
--- NOTE | 2023-09-08 09:11 | W.PM.ENDDOP ---
Date of service: 09/08/23 Time of Service: 09:11 Endoscopy Report PROCEDURE DESCRIPTION: PROCEDURES PERFORMED: 1. EGD with biopsies PREOPERATIVE DIAGNOSIS: GI bleeding POSTOPERATIVE DIAGNOSIS: Small hiatal hernia, LA grade B esophagitis SURGEON: Ty Elias MD INDICATION FOR PROCEDURE: 78-year-old woman had some melanotic stools, hemoglobin normal. FINDINGS: D2/D3 = normal D1/bulb = normal - no ulcers or inflammation Pylorus = normal Antrum = normal appearance, no ulcers, cold forceps biopsies were taken to rule out H. pylori routinely Body = normal appearance, biopsies taken with cold forceps technique routinely Fundus = normal, no polyps Cardia = normal Hiatus = very small (sub-centimeter) type I sliding hiatal hernia, Hill grade 1 hiatal defect Distal esophagus = mild, diffuse inflammation for about 2 cm consistent with LA grade B esophagitis. I took cold forceps biopsies to confirm. Mid esophagus = normal Proximal esophagus/hypopharynx/vocal cords = normal SURVEILLANCE-INTERVAL/FOLLOW-UP: Follow-up with PCP. Repeat endoscopy unlikely to be necessary. Hiatal hernia repair/antireflux surgery not warranted unless BMI under 30. Specimens: Yes EBL: Minimal COMPLICATIONS: None Procedure in detail: The patient gave written consent and was in agreement with the indications, the potential risks as well as the benefits of the procedure. The patient was taken to the endoscopy suite and laid on their left side. Anesthesia was given which was tolerated well. We performed a timeout and we are in agreement I started the procedure. A well-lubricated endoscope was gently and carefully advanced down the esophagus, into the stomach the scope was and through the pylorus into the duodenum. The scope was then slowly withdrawn with the above-noted findings/interventions. The patient tolerated the procedure well and was then turned for colonoscopy (see separate procedure note).
--- NOTE | 2023-09-08 09:14 | COLE_ITS ---
Date of service: 09/08/23 Time of Service: 09:14 Colonoscopy Report Procedure Description: PROCEDURES PERFORMED: 1. Colonoscopy PREOPERATIVE DIAGNOSIS: GI bleeding POSTOPERATIVE DIAGNOSIS: Normal colon, normal rectum SURGEON: Ty Elias MD INDICATION FOR PROCEDURE: the patient is a 78-year-old woman who had a normal colonoscopy 6 years ago. She had bowel habit changes and dark tarry stools and there was concern she had GI bleeding. Her hemoglobin has stayed normal. She has no family history of colon cancer. FINDINGS: I was unable to intubate the terminal ileum from a technical standpoint but I have no clinical suspicion for disease there or bleeding based off of a normal hemoglobin. There were no polyps found. There is no inflammation seen. There is no diverticular disease anywhere. There is not even significant hemorrhoid disease. Completely normal exam. SURVEILLANCE interval/FOLLOW-UP: 10 years if she still has a good life expectancy at that time SPECIMENS: None EBL: Minimal COMPLICATIONS: None QUALITY of prep: Excellent Procedure in detail: The patient gave written consent and was in agreement with the indications, the potential risks as well as the benefits of the procedure. She was turned from upper endoscopy (see separate procedure note) and kept in the same position and anesthesia was continued and I started the colonoscopy portion of the procedure. Digital rectal and visual examination was performed and grossly within normal limits. A well-lubricated flexible colonoscope was then introduced and passed without any notable difficulty all the way to the cecum identified by the ileocecal valve and the appendiceal orifice. I spent about 2 or 3 minutes trying to intubate the terminal ileum but was unable to advance the scope into the ileocecal valve. There is certainly no evidence of inflammation around the valve itself nor anything suspicious for ongoing bleeding. The scope was then slowly withdrawn with the above-noted findings. The patient tolerated the procedure well and was taken to the PACU in hemody namically stable condition.
--- NOTE | 2023-09-08 09:17 | W.PM.DSUDISC ---
Date of service: 09/08/23 Time of Service: 09:17 Discharge Plan Disposition Patient Disposition: Home Condition: Good Discharge Details Attending Provider: Avinash Elias Primary Care Provider: Marquez Monteiro Home Meds and New Rx's Prescriptions: No Action vitamin B complex [B Complex-Vitamin B12] Tablet 1 tab PO DAILY cholecalciferol (vitamin D3) 2,000 unit capsule 2,000 unit PO DAILY [id number] serr [Glucosamine Daily Complex] 1,500-400-100 mg-unit-mg tablet 1 tab PO DAILY amlodipine 2.5 mg tablet 2.5 mg PO DAILY valsartan 160 mg tablet 160 mg PO DAILY rosuvastatin 10 mg tablet 10 mg PO DAILY hydrochlorothiazide 12.5 mg tablet 12.5 mg PO DAILY Discharge Instructions Additional Instructions: FINDINGS: On upper endoscopy, there is some mild inflammation in your esophagus. This is often from acid reflux and is typically best?treated by lifestyle and dietary changes. Everything else otherwise looks completely normal. On colonoscopy, your colon and your rectum appear completely normal and healthy. There were no concerning findings. You probably do not need another EGD ever. You probably should do another colonoscopy in 10 years if you are still healthy at that time. Activity:: Activity as Tolerated Diet:: As Tolerated
[2023-09-08 09:38] VITALS: BP 143/72; PULSE 61; RESP 16; TEMP 36.1; O2SAT 96
--- NOTE | 2023-09-08 09:59 | W.ANESPOSTOP ---
Postoperative Evaluation Date, Time and Location Date Performed: 09/08/23 Time Performed: 09:12 Patient Location: Day Surgery Unit Vital Signs Most Recent Imported Vital Signs: Most Recent Vital Signs Temp Pulse Resp BP Pulse Ox 36.1 C L 61 16 143/72 H 96 09/08/23 09:38 09/08/23 09:38 09/08/23 09:38 09/08/23 09:38 09/08/23 09:38 Pain Score Most Recent Pain Score: Most Recent Pain Score Pain Level 0 09/08/23 09:38 Assessment Mental Status: Awake (Alert & Oriented to Patient Baseline) Airway and Respiratory Function: Patent airway with normal (patient baseline) respiratory exam Cardiovascular Function: Hemodynamically Stable Hydration Status: Adequately Hydrated Nausea & Vomiting: No Nausea or Vomiting Pain: Pt. Denies Any Pain Peripheral Nerve Block: Patient did not receive a nerve block
== END 2023-09-08 10:10 | disposition home or self-care (01) ==
PROVIDERS: PCP Student in an Organized Health Care Education/Training Program; Visit Provider Student in an Organized Health Care Education/Training Program
PROC: (CPT 43239; principal; 2023-09-08 08:30)
DX: Z12.11 Encounter for screening for malignant neoplasm of colon (principal); K92.2 Gastrointestinal hemorrhage, unspecified; K44.9 Diaphragmatic hernia without obstruction or gangrene; K20.90 Esophagitis, unspecified without bleeding; K31.89 Other diseases of stomach and duodenum
CPT/HCPCS: 43239; G0121; 00123; 88305; J2001; J2704

== ENCOUNTER → 2023-10-14 09:04 | Outpatient (BNVA) | payer MEDICARE, SELFPAY | PROVIDERS: PCP Student in an Organized Health Care Education/Training Program; Referring Provider Student in an Organized Health Care Education/Training Program; Visit Provider Surgery | DX: L98.9 Disorder of the skin and subcutaneous tissue, unspecified (principal); Q89.9 Congenital malformation, unspecified; G31.9 Degenerative disease of nervous system, unspecified | CPT/HCPCS: 99215 ==

== ENCOUNTER → 2023-10-28 01:12 | Outpatient (CLI) | payer MEDICARE, SELFPAY ==
--- NOTE | 2023-10-28 08:46 | DI.US_ITS ---
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 TECHNIQUE: Ultrasound was performed using standard protocol. COMPARISON: None FINDINGS: Submitted images reveal a skin cleft but no subjacent deeper tract nor fluid collection in the deeper tissues. IMPRESSION: No obvious abnormality deeper to the skin cleft. DATA REPOSITORY:
== END ==
PROVIDERS: PCP Student in an Organized Health Care Education/Training Program; Visit Provider Surgery
DX: Q89.9 Congenital malformation, unspecified (principal)
CPT/HCPCS: 76705

== ENCOUNTER 2023-12-29 16:14 | Emergency (ER) | payer MEDICARE, SELFPAY ==
[2023-12-29] VITALS (10 sets, daily range): BP systolic 149–163; BP diastolic 76–92; PULSE 62–71; RESP 15–21; TEMP 36.2; O2SAT 95–99
--- NOTE | 2023-12-29 16:30 | RT.EKG_ITS ---
APPROVED REPORT Exam: Resting ECG Reason for Exam: Headache visual disturbances Patient Location: E HR:59 bpm ECG Measurements Heart Rate 59 AXIS DC 185 P 57 QRSd 86 QRS 49 QT 383 T 47 QTc 380 Conclusion Sinus bradycardia...rate< 60
--- NOTE | 2023-12-29 16:48 | ED.GENADUL_ITS ---
Discharge Plan Disposition Patient Disposition: Home Condition: Stable Discharge Details Clinical Impression: Headache, Visual disturbance Primary Care Provider: Marquez Monteiro ED Provider: Rosario Lim Home Meds and New Rx's Prescriptions: Continued vitamin B complex [B Complex-Vitamin B12] Tablet 1 tab PO DAILY cholecalciferol (vitamin D3) 2,000 unit capsule 2,000 unit PO DAILY [id number] [Glucosamine Daily Complex] 1,500-400-100 mg-unit-mg tablet 1 tab PO DAILY amlodipine 2.5 mg tablet 2.5 mg PO DAILY valsartan 160 mg tablet 160 mg PO DAILY rosuvastatin 10 mg tablet 10 mg PO DAILY hydrochlorothiazide 12.5 mg tablet 12.5 mg PO DAILY Discharge Instructions Instructions: Headache, Adult ED Additional Instructions: At this time CT shows no evidence for stroke. However her blood pressure is high, make sure to recheck your blood pressure and take your medications as prescribed. Discuss this with your PCP. Follow up with primary care provider in 3-5 days. Return to ED sooner if any worsening or concerns. Please take Tylenol or Ibuprofen with food every 4-6 hours as needed for pain and swelling. Thank you for allowing us to care for you today. Referrals: Marquez Monteiro [Primary Care Provider] - 3 days Discharge Data Discharge Date/Time-TO BE ENTERED AT DEPARTURE: 12/29/23 19:05 HPI General Mode of arrival: ambulatory . Date/Time Provider Initiated Documentation: 12/29/23 16:19 . Limitations to Documentation: no limitations . Information obtained by: patient, RN notes reviewed and old records reviewed . HPI Narrative: 78-year-old female presents to the ER with a chief complaint of visual disturbances which may began around 330 this afternoon she reports spots and lines in her left eye which then moved over to her right eye and then onset of left-sided headache which she still currently has. She is alert and oriented x 4, no facial droop no speech disturbances denies any gait abnormalities or feeling off balance. She denies any numbness tingling in her arms or legs. She does have a history of high cholesterol, hypertension, cerebral atherosclerosis, Alzheimer's disease and osteopenia. Denies any nausea vomiting fever chills or any other associated symptoms. Related Data Home Medications ?Medication ?Instructions ?Recorded ?Confirmed cholecalciferol (vitamin D3) 50 2,000 unit PO DAILY 02/07/18 12/29/23 mcg (2,000 unit) capsule glucosamine [id number] 1 tab PO DAILY 02/07/18 12/29/23 juanita 1,500 mg-400 unit-100 mg tablet (Glucosamine Daily Complex) amlodipine 2.5 mg tablet 2.5 mg PO DAILY 12/10/21 12/29/23 vitamin B complex (B 1 tab PO DAILY 01/28/22 12/29/23 Complex-Vitamin B12 tablet) hydrochlorothiazide 12.5 mg tablet 12.5 mg PO DAILY 08/02/23 12/29/23 rosuvastatin 10 mg tablet 10 mg PO DAILY 08/02/23 12/29/23 valsartan 160 mg tablet 160 mg PO DAILY 08/02/23 12/29/23 Allergies Allergy/AdvReac Type Severity Reaction Status Date / Time NATHALIE Inhibitors Allergy Unknown Verified 12/29/23 18:06 enalapril Allergy Unknown Verified 12/29/23 18:06 feathers Allergy Wheezing Verified 12/29/23 18:06 house dust Allergy Wheezing Verified 12/29/23 18:06 General Stated Complaint: CVA/TIA TONY: 3 Review of Systems All systems reviewed & are unremarkable except as noted in HPI and below Constitutional Constitutional: Reports headache(s) Eyes Eyes: Reports change in vision, Reports floaters, Reports other visual disturbances and Reports spots in vision ENT Ears, Nose, Mouth, and Throat: Reports headache(s) Neurologic Neurologic: Reports headache(s) Exam Narrative Exam Narrative: Constitutional: Alert and oriented x3. Appears stated age. Normal body habitus. Head: Normocephalic, no trauma. Eyes: Pupils PERRL, Red reflex noted, EOM's intact. Eyelids symmetrical without lesions, discharge, or swelling. ENT: Bilateral TM's WNL, External ear normal to inspection, no mastoid TTP, swelling, or erythema, Nasal turbinates WNL, no nasal discharge. Normal dentition, Posterior pharynx WNL, no exudate. Chest: RRR, Normal S1, S2, distal pulses intact. Resp: Lungs clear to auscultation bilaterally, no wheezes, rales, or rhonchi. Abdomen: Soft, non-distended, Normoactive bowel sounds all 4 quads. Musculoskeletal: Normal gait, Moves all 4 extremities without difficulty. Skin: No suspicious rashes or lesions. Capillary refill less than 2 sec. Neurologic: Cranial nerves II-XII intact. Alert and oriented x 3. Motor: No deficits noted. Sensory: Intact bilaterally all 4 extremities. Hematologic/Lymphatic: No ecchymosis, no lymphadenopathy. Course Vital Signs Vital signs: Vital Signs Temperature 36.2 C L 12/29/23 16:27 Pulse 62 12/29/23 16:27 Respiratory Rate 15 12/29/23 16:27 Blood Pressure 163/92 H 12/29/23 16:27 Pulse Oximetry 95 12/29/23 16:27 Temperature 36.2 C L 12/29/23 16:27 Pulse 62 12/29/23 16:27 Respiratory Rate 15 12/29/23 16:27 Blood Pressure 163/92 H 12/29/23 16:27 Blood Pressure Position Sitting 12/29/23 16:27 Pulse Oximetry 95 12/29/23 16:27 Oxygen Delivery Method Room Air 12/29/23 16:27 Oxygen Flow Rate 0 12/29/23 16:27 Medical Decision Making 78-year-old female presents to the ER with a chief complaint of visual disturbances which may began around 330 this afternoon she reports spots and lines in her left eye which then moved over to her right eye and then onset of left-sided headache which she still currently has. She is alert and oriented x 4, no facial droop no speech disturbances denies any gait abnormalities or feeling off balance. She denies any numbness tingling in her arms or legs. She does have a history of high cholesterol, hypertension, cerebral atherosclerosis, Alzheimer's disease and osteopenia. Denies any nausea vomiting fever chills or any other associated symptoms. Workup ordered including CBC CMP, EKG, urinalysis, PT PTT, CTA brain and neck. EKG was reviewed by Dr. Esqueda ER attending, old EKG available for review. Please see official report. CTA shows no significant stenosis or intracranial abnormality. Does have some mural calcifications of the internal carotid arteries however no significant stenosis. Please see official report. Labs are largely unremarkable. On patient reevaluation she reports that she still has a headache to she just recently got the medications, she is taking p.o. fluids without difficulty. Patient discharged to home in hemodynamically stable condition. Discussed results with patient and all her questions were answered to the best my ability. This text was generated using [employer] system, please disregard any oddities of phrase or misspellings. Discussed home care, strict return instructions and follow-up care. Medical Records Medical records reviewed: Yes I reviewed the patient's medical records. Imaging Data Radiologic Study: Imaging: CT Scan Radiologist's impression: IMPRESSION: 1. CTA brain: Mural calcification in the internal carotid arteries as well as left vertebral artery however there is no significant stenosis. 2. Head CT: Unremarkable CT Head. 3. CTA neck: Mild plaque at the common carotid bulbs. No evidence of stenosis or dissection. Vertebral arteries are intact. Lab Data Lab results reviewed: Yes I reviewed the patient's lab results. Labs: Laboratory Tests Range/Units 12/29/23 12/29/23 16:42 16:55 WBC (4.4-10.8) 10^3/uL 7.38 RBC (3.93-5.22) 10^6/uL 4.99 Hgb (11.2-15.7) g/dL 15.4 Hct (36.0-46.0) % 46.2 H MCV (80-95) fL 93 MCH (27.0-33.0) pg 30.9 MCHC (32.0-36.0) % 33.3 RDW (11.7-14.6) % 13.2 Plt Count (130-400) 10^3/uL 237 MPV (8.0-11.0) fL 10.5 Immature Gran % % 0.4 Neutrophils % % 63.9 Lymphocytes % % 24.7 Monocytes % % 7.9 Eosinophils % % 2.6 Basophils % % 0.5 Nucleated RBC % (0.0-0.3) % 0.0 Absolute Neutrophils (1.2-6.7) 10^3/uL 4.72 Absolute Lymphocytes (1.2-3.4) 10^3/uL 1.82 Absolute Monocytes (0.1-0.8) 10^3/uL 0.58 Absolute Eosinophils (0.0-0.7) 10^3/uL 0.19 Absolute Basophils (0.0-0.2) 10^3/uL 0.04 PT (9.1-11.1) sec 9.9 INR (0.9-1.1) 1.0 Sodium (136-145) mmol/L 144 Potassium (3.5-5.1) mmol/L 3.6 Chloride (98-107) mmol/L 104 Carbon Dioxide (21.0-32.0) mmol/L 31.8 Anion Gap (3-11) mmol/L 8.2 BUN (7-18) mg/dL 15 Creatinine (0.55-1.02) mg/dL 0.9 Est GFR (CKD-EPI 2020) (mL/min/1.73m2) 66.26 Glucose (74-106) mg/dL 88 Calcium (8.5-10.1) mg/dL 9.6 Magnesium (1.8-2.4) mg/dL 2.3 Total Bilirubin (0.2-1.0) mg/dL 0.37 AST (15-37) U/L 29 ALT (14-59) U/L 34 Alkaline Phosphatase (46-116) U/L 69 Troponin I (<or=51) ng/L 5 Total Protein (6.4-8.2) g/dL 7.7 Albumin (3.4-5.0) g/dL 4.0 Urine Color (Yellow) Yellow Urine Clarity (Clear) Clear Urine pH (5-8) 7.0 Ur Specific [place] (1.005-1.025) 1.020 Urine Protein (Neg-Trace) mg/dL Negative Urine Ketones (Negative) mg/dL Negative Urine Blood (Negative) Negative Urine Nitrite (Negative) Negative Urine Bilirubin (Negative) Negative Urine Urobilinogen (Up to 0.2) mg/dL 0.2 Ur Leukocyte Esterase (Negative) Negative Urine Glucose (Negative) mg/dL Negative Quality:SDOH Health Related Social Needs: No Data to Display PFSH All Active Problems (Updated 12/29/23 @ 18:23 by Rosario Lim NP) Visual disturbance (Acute) Headache (Acute) 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 Social History Smoking/Tobacco Use Status: Former Tobacco Use Quit Date: 03/22/99 Smoking risk assessment performed?: Yes Alcohol Intake: former Drug use: Never Substance use type: does not use Housing: house Current gender identity: female Do you feel safe at home: Yes Do you feel safe in your relationship?: Yes Additional Social history: [employer]
[2023-12-29 16:53] LABS: Abs Immature Grans 0.03 10^3/uL (0.0-0.06); Absolute Basophil Count 0.04 10^3/uL (0.0-0.2); Absolute Eosinophil Count 0.19 10^3/uL (0.0-0.7); Absolute Lymphocyte Count 1.82 10^3/uL (1.2-3.4); Absolute Monocyte Count 0.58 10^3/uL (0.1-0.8); Absolute Neutrophil Count 4.72 10^3/uL (1.2-6.7); Basophils % 0.5 %; Eosinophils % 2.6 %; HCT 46.2 % (36.0-46.0); HGB 15.4 g/dL (11.2-15.7); Immature Grans % 0.4 %; Lymphocytes % 24.7 %; MCH 30.9 pg (27.0-33.0); MCHC 33.3 % (32.0-36.0); MCV 93 fL (80-95); MPV 10.5 fL (8.0-11.0); Monocytes % 7.9 %; Neutrophils % 63.9 %; Platelet Count 237 10^3/uL (130-400); RBC 4.99 10^6/uL (3.93-5.22); RDW 13.2 % (11.7-14.6); RDW-SD 44.5 fL; WBC 7.38 10^3/uL (4.4-10.8)
[2023-12-29] MEDS: Omnipaque 350 MG/ML 100 ML BTL IJ (16:53)
[2023-12-29] MEDS: Normal Saline - Diluent 50 ML VIAL IJ (16:59)
[2023-12-29 17:05] LABS: Prothrombin Time 9.9 sec (9.1-11.1)
--- NOTE | 2023-12-29 17:06 | DI.CT_ITS ---
Exam(s) CT BRAIN NECK CTA EXAM: CT BRAIN NECK CTA CLINICAL HISTORY: Headache, visual disturbances. TECHNIQUE: Imaging Protocol: Axial CT angiography was performed with multi-slice acquisition and mu lti-planar and MIP reconstructions. CONTRAST MATERIAL: Intravenous: Omnipaque 350 Contrast volume:100 ml COMPARISON: No exams were available for comparison FINDINGS: CT Head W/O and W contrast: Ventricles and Extra axial spaces: Normal in size and morphology for the patient's age. Hemorrhage: None. Cerebral parenchyma: No evidence of acute infarct or mass. Midline shift: None. Brainstem/Cerebellum: No acute findings.. Calvarium: Normal. Visualized Paranasal sinuses/Mastoids: Clear. Soft Tissues: Unremarkable. Enhancement: Normal. CTA Brain W: Internal Carotid Arteries: Mural calcification but no significant stenosis. Middle Cerebral Arteries: Right: No aneurysm, occlusion or significant stenosis. Left: No aneurysm, occlusion or significant stenosis. Anterior Cerebral Arteries: Right: No aneurysm, occlusion or significant stenosis. Left: No aneurysm, occlusion or significant stenosis. Posterior cerebral Arteries: Right: No aneurysm, occlusion or significant stenosis. Left: No aneurysm, occlusion or significant stenosis. Vertebral Arteries: Right: No aneurysm, occlusion or significant stenosis. Left: Mural calcifications but no aneurysm, occlusion or significant stenosis. Basilar Artery: No aneurysm, occlusion or significant stenosis. CTA Neck W: Common Carotid: Right: Mild plaque at bulb. No dissection, occlusion or significant stenosis. Left: Minimal plaque at bulb. No dissection, occlusion or significant stenosis. External Carotid: Right: No dissection, occlusion or significant stenosis. Left: No dissection, occlusion or significant stenosis. Internal Carotid: Right: No dissection, occlusion or significant stenosis. Left: No dissection, occlusion or significant stenosis. Vertebral Artery: Right: No dissection, occlusion or significant stenosis. Left: No dissection, occlusion or significant stenosis. Lung Apices: No acute findings. Bones: No acute abnormality. Soft Tissues: Normal. IMPRESSION: 1. CTA brain: Mural calcification in the internal carotid arteries as well as left vertebral artery h owever there is no significant stenosis. 2. Head CT: Unremarkable CT Head. 3. CTA neck: Mild plaque at the common carotid bulbs. No evidence of stenosis or dissection. Verteb ral arteries are intact. RADIATION DOSE DELIVERED: Total DLP DATA REPOSITORY: All CT scans at this facility are submitted to the National Radiology Data Registry (NRDR) Dose Index Registry (DIR) with the [employer] (ACR). RADIATION OPTIMIZATION: All CT scans at this facility use at least one of these dose optimization te chniques: automated exposure control; mA and/or kV adjustment per patient size (includes targeted exa ms where dose is matched to clinical indication); or iterative reconstruction.
[2023-12-29 17:13] LABS: ALT 34 U/L (14-59); AST 29 U/L (15-37); Alkaline Phosphatase 69 U/L (46-116); Anion Gap 8.2 mmol/L (3-11); BUN 15 mg/dL (7-18); Bilirubin, Total 0.37 mg/dL (0.2-1.0); CO2 31.8 mmol/L (21.0-32.0); CREATININE 0.9 mg/dL (0.55-1.02); Calcium 9.6 mg/dL (8.5-10.1); Chloride 104 mmol/L (98-107); Estimated GFR 66.26 (mL/min/1.73m2); Glucose 88 mg/dL (74-106); Magnesium 2.3 mg/dL (1.8-2.4); Potassium 3.6 mmol/L (3.5-5.1); Sodium 144 mmol/L (136-145); Total Protein 7.7 g/dL (6.4-8.2); Troponin I 5 ng/L (<or=51)
[2023-12-29 17:17] LABS: Bilirubin Negative (Negative); Blood Negative (Negative); Clarity Clear (Clear); Glucose Negative (Negative); Ketones Negative (Negative); Leukocyte Esterase Negative (Negative); Nitrite Negative (Negative); Urobilinogen 0.2 mg/dL (Up to 0.2)
[2023-12-29] MEDS: Ondansetron O.D.T. 4 MG TABEF PO (17:40)
[2023-12-29] MEDS: Ketorolac 15 MG/ML VIAL IVP (17:40)
[2023-12-29 18:19] LABS: Troponin I 5 ng/L (<or=51)
== END 2023-12-29 19:05 | disposition home or self-care (01) ==
PROVIDERS: Emergency Provider Registered Nurse Emergency; PCP Student in an Organized Health Care Education/Training Program
DX: R51.9 Headache, unspecified (principal); H53.8 Other visual disturbances; G30.9 Alzheimer's disease, unspecified; F02.80 Dementia in other diseases classified elsewhere, unspecified severity, without behavioral disturbance, psychotic disturbance, mood disturbance, and anxiety
CPT/HCPCS: 70496; 70498; 80053; 82962; 93005; 96374; 99285; 81003; 83735; 84484; 85025; 85610; 93010; 99284; J1885; J3490

== ENCOUNTER 2024-01-26 02:01 | Outpatient (CLI) | payer MEDICARE, SELFPAY ==
--- NOTE | 2024-01-26 | DI.MAMMO_ITS ---
Exam(s) MAMMO SCREENING EXAM: MAMMO SCREENING CLINICAL HISTORY: Z12.31 Screening TECHNIQUE: Bilateral full field digital CC and MLO mammographic images were obtained with 3D tomosyn thesis and utilizing computer aided detection (CAD). COMPARISON: Available for comparison. FINDINGS: Masses/Architectural Distortion: None seen. Microcalcifications: No suspicious pleomorphic-type are seen. Skin Thickening/Nipple Retraction: None. IMPRESSION: 1. No significant interval change with no specific features of malignancy noted. 2. Unless there is more urgent need, screening mammography is recommended, as per [employer] guidelines. BI-RADS Category 1 - Negative Breast Density - Category B - Scattered areas of fibroglandular density Breast density category C or D implies that the patient has dense breast tissue. Dense breast tissue is very common and is not abnormal but dense breast tissue can make it harder to find cancer on a ma mmogram. Also, dense breast tissue may increase their breast cancer risk. This information about the result of the mammogram report was provided to the patient to raise their awareness. Use this report when you speak with the patient about their risks for breast cancer, which includes their family hist ory. At that time, you may recommend for more screening tests (Ultrasound or MRI) as they might be us eful based on their risk. A negative radiographic report should not delay biopsy if a dominant or clinically suspicious mass is present. Up to ten percent of cancers are not identified on mammography. A negative report may reinforce clinical impression. Adenosis and dense breasts may obscure an underlying neoplasm. False positive reports average 6 to 10%. Patient will receive a letter notifying them of these results.
== END 2024-01-26 02:21 ==
LOC: DI 02:01
PROVIDERS: PCP Student in an Organized Health Care Education/Training Program; Visit Provider Student in an Organized Health Care Education/Training Program
DX: Z12.31 Encounter for screening mammogram for malignant neoplasm of breast (principal); R92.323 Mammographic fibroglandular density, bilateral breasts
CPT/HCPCS: 77063; 77067

== ENCOUNTER 2024-06-23 14:48 | Outpatient (REF) | payer MEDICARE, SELFPAY ==
[2024-06-23 21:19] LABS: Abs Immature Grans 0.03 10^3/uL (0.0-0.06); Absolute Basophil Count 0.05 10^3/uL (0.0-0.2); Absolute Eosinophil Count 0.15 10^3/uL (0.0-0.7); Absolute Lymphocyte Count 2.14 10^3/uL (1.2-3.4); Absolute Monocyte Count 0.57 10^3/uL (0.1-0.8); Absolute Neutrophil Count 4.78 10^3/uL (1.2-6.7); Basophils % 0.6 %; Eosinophils % 1.9 %; HCT 43.3 % (36.0-46.0); HGB 14.1 g/dL (11.2-15.7); Immature Grans % 0.4 %; Lymphocytes % 27.7 %; MCH 30.5 pg (27.0-33.0); MCHC 32.6 % (32.0-36.0); MCV 94 fL (80-95); MPV 10.9 fL (8.0-11.0); Monocytes % 7.4 %; Platelet Count 247 10^3/uL (130-400); RBC 4.63 10^6/uL (3.93-5.22); RDW 13.2 % (11.7-14.6); RDW-SD 45.2 fL; WBC 7.72 10^3/uL (4.4-10.8)
[2024-06-23 21:46] LABS: ALT 31 U/L (14-59); AST 25 U/L (15-37); Albumin 3.8 g/dL (3.4-5.0); Alkaline Phosphatase 68 U/L (46-116); Anion Gap 6.8 mmol/L (3-11); BUN 12 mg/dL (7-18); Bilirubin, Total 0.3 mg/dL (0.2-1.0); CO2 30.2 mmol/L (21.0-32.0); CREATININE 0.8 mg/dL (0.55-1.02); Calcium 9.4 mg/dL (8.5-10.1); Chloride 104 mmol/L (98-107); ESR 8 mm/hr (0-30); Estimated GFR 75.84 (mL/min/1.73m2); Glucose 154 mg/dL (74-106); Sodium 141 mmol/L (136-145); Total Protein 6.6 g/dL (6.4-8.2)
[2024-06-23 21:54] LABS: C-Reactive Protein < 0.50 mg/dL (<or=0.5)
== END 2024-06-23 14:49 | disposition home or self-care (01) ==
LOC: NCHCN 14:48
PROVIDERS: PCP Student in an Organized Health Care Education/Training Program; Visit Provider Student in an Organized Health Care Education/Training Program
DX: R51.9 Headache, unspecified (principal)
CPT/HCPCS: 80053; 85652; 85025; 86140

== ENCOUNTER 2024-07-21 01:32 | Outpatient (CLI) | payer MEDICARE, SELFPAY ==
--- NOTE | 2024-07-21 08:30 | DI.US_ITS ---
APPROVED REPORT EXAM: Comprehensive 2D, Doppler, and color-flow Echocardiogram Patient Location: Out-Patient Dispute Resolution Specialist: Dashawn Maurer RDCS (AE) Indications: Murmur Other Information Study Quality: Good Conclusion Normal left ventricular wall thickness and chamber size. Ejection fraction is 60 to 65%. Wall motio n is normal Normal right ventricular size and function Both atria are normal in size Aortic valve is mildly sclerotic and trileaflet without stenosis or regurgitation Normal mitral valve with mild regurgitation Normal tricuspid valve, mild regurgitation, estimated right ventricular systolic pressure is 26 mmHg Wall motion Left Ventricle The left ventricle is normal size. Left ventricular systolic function is normal. The left ventricular ejection fraction is within the normal range. There is normal left ventricular wall thickness. There is normal LV segmental wall motion. The left ventricular diastolic function is normal. There is no v entricular septal defect visualized. LVEF is 60-65%. Right Ventricle The right ventricle is normal size. The right ventricular systolic function is normal. Atria The left atrium size is normal. The right atrium size is normal. The interatrial septum is intact wit h no evidence for an atrial septal defect. Aortic Valve The aortic valve is mildly sclerotic. There is no aortic valvular stenosis. No aortic regurgitation i s present. Mitral Valve The mitral valve is normal in structure. No evidence of mitral valve stenosis. Mild mitral regurgitat ion. Tricuspid Valve The tricuspid valve is normal in structure. There is no tricuspid valve stenosis. Mild tricuspid regu rgitation. The RVSP is 26.4 mmHg. Pulmonic Valve The pulmonary valve is normal in structure. There is no pulmonic valvular stenosis. There is no pulmo farzana valvular regurgitation. Great Vessels The aortic root is normal in size. The ascending aorta is normal in size. Aortic arch is normal in ca liber. IVC is normal in size and collapses >50% with inspiration. Pericardium There is no pericardial effusion. 2D Dimensions IVSD d PLAX 0.87 cm F: 0.6-1.0 Ao Root d 2.60 cm F: 2.7 - 3.3 LVPW d PLAX 0.85 cm F: 0.6 - 1.0 Ao Asc Diam d 2.92 cm F: 2.3 - 3.1 LVID d PLAX 4.83 cm F: 3.8 - 5.2 LVDs 3.11 cm F: 2.2 - 3.5 LV EF Teichholz 64.9 % FS 35.59 % LV EDV (Teich) 109.1 mL LV ESV (Teich) 38.2 mL Stroke Vol Index (Teich) 39.16 M-Mode TAPSE 2.56 cm (M/F) >1.7 Auto EF LV EDV A4C 92.4 mL LV EDV A2C 112.5 mL LV EDV BP 100.5 mL LV ESV A4C 36.6 mL LV ESV A2C 39.8 mL LV ESV BP 38.2 mL LVEF(%) A4C 60.4 % LVEF(%) A2C 64.6 % LVEF(%) BP 62.0 % LV SV A4C 55.9 ml LV SV A2C 72.7 ml LV SV BP 62.3 ml LV CO A4C 2.9 L/min LV CO A2C 3.8 L/min LV CO BP 3.3 L/min HR A4C 52.63 BPM HR A2C 51.65 BPM LV EDV Index (BP) LA Volume LA Length A4C 4.6 cm LA Length A2C 4.8 cm LA Area A4C s 10.90 cm2 LA Area A2C s 15.68 cm2 LA Vol A4C A-L 21.83 mL LA Vol A2C A-L 43.30 mL LA Vol Biplane A-L 31.4 mL LA Vol/BSA A4C A-L LA Vol/BSA A2C A-L LA Vol/BSA BP A-L 17.4 mL/m2 LA Vol A4C MOD 20.7 mL LA Vol A2C MOD 41.1 mL LA Vol BP MOD 29.5 mL RA Volume RA Area A4C 10.9 cm2 RA ESV A4C (A-L) 26.0mL RA Vol/BSA A4C A-L RA Length A4C 3.9 cm RA ESV A4C (MOD) 24.1mL LV Diastology MV E' medial 0.100 (>0.07 m/s) MV E Vmax 0.88 (0.4-1.3 m/s) MV E/E' MED 8.80 (<14) MV A Vmax 1.00 (0.4-1.3 m/s) MV E' lateral 0.095 (>0.1 m/s) E/A Ratio 0.9 MV E/E' LAT 9.25 (<14) MV E' Average 0.097 m/s MV E/E'(average) 9.02 Aortic Valve AoV Vmax 1.37 m/s LVOT Vmax 0.90 m/s AoV Peak Grad 7.5 mmHg LVOT Peak Grad 3.3 mmHg AoV Area (Vmax) 1.97 cm2 LVOT VTI 0.214 m AoV VTI 0.344 m LVOT Mean Grad 1.7 mmHg AoV Mean [place]. 0.96 m/s LVOT SV 63.92 mL AoV Mean Grad 4.1 mmHg LVOT Diam s 1.95 cm AoV Area (VTI) 1.86 cm2 AV Regurg Peak Gr. 7.50 mmHg Velocity Ratio 0.66 Mitral Valve MV DT 213 (160-240 msec) MR Vmax 4.88 m/s MV Vmax TIPS 0.95 m/s MR VTI 1.964 m MV Mean Grad 1.2 (<2mmHg) MR Peak Grad 95.3 mmHg MV VTI 0.356 m MR Mean Grad 62.6 mmHg MR PISA Radius 0.43 cm MR Aliasing Velocity 0.30 m/s Pulmonary Valve PV Vmax 1.17 (0.5-1.5 m/s) RVOT Vmax 0.82 m/s PV Peak Grad 5.5 mmHg RVOT Peak Gr. 2.7 mmHg PV Mean [place] 0.73 m/s RVOT VTI 0.162 m PV Mean Grad 2.6 mmHg RVOT Mean Gr. 1.5 mmHg Tricuspid Valve RA Pressure 3.00 mmHg TR Vmax 2.42 m/s TV S' 0.15 m/s TR Peak Grad 23.4 mmHg RVSP (TR) 26.4 mmHg
== END 2024-07-21 01:52 ==
LOC: DI 01:33
PROVIDERS: PCP Student in an Organized Health Care Education/Training Program; Visit Provider Internal Medicine Cardiovascular Disease
DX: R01.1 Cardiac murmur, unspecified (principal); I35.0 Nonrheumatic aortic (valve) stenosis
CPT/HCPCS: 93306

== ENCOUNTER → 2025-03-08 00:37 | Outpatient (CLI) | payer MEDICARE, SELFPAY ==
--- NOTE | 2025-03-08 | DI.MAMMO_ITS ---
Exam(s) MAMMO SCREENING EXAM: MAMMO SCREENING CLINICAL HISTORY: SCREENING, Z12.31 TECHNIQUE: Bilateral full field digital CC and MLO mammographic images were obtained with 3D tomosynthesis and utilizing computer aided detection (CAD). COMPARISON: Comparison is made with prior examinations. FINDINGS: Masses/Architectural Distortion: No suspicious masses or areas of architectural distortion are present. Microcalcifications: No suspicious pleomorphic-type are seen. Skin Thickening/Nipple Retraction: None. IMPRESSION: 1. No significant interval change with no specific features of malignancy noted. 2. Unless there is more urgent need, screening mammography is recommended, as per [employer] guidelines. BI-RADS Category 1 - Negative Breast Density - Category B - There are scattered areas of fibroglandular density. Breast density Category C or D implies that the patient has dense breast tissue. Dense breast tissue can make it harder to find cancer on a mammogram. Dense breast tissue is also associated with an increased risk of breast cancer. This information about the result of the mammogram report was provided to the patient to raise their awareness. Use this report when you speak with the patient about their risks for breast cancer, which includes their family history. At that time, you may recommend additional screening tests (Ultrasound or MRI) as these tests may add significant information. A negative radiographic report should not delay biopsy if a dominant or clinically suspicious mass is present. Up to ten percent of cancers are not identified on mammography. A negative report may reinforce clinical impression. Adenosis and dense breasts may obscure an underlying neoplasm. False positive reports average 6 to 10%. Patient will receive a letter notifying them of these results.
--- NOTE | 2025-03-08 14:30 | DI.DEXA_ITS ---
Exam(s) XR DEXA BONE DENSITY W/WO ZAKIA EXAM: XR DEXA BONE DENSITY W/WO ZAKIA CLINICAL HISTORY: POSTMENOPAUSAL STATE, ASYMPTOMATIC MENOPAUSAL STATE, Z78.0 TECHNIQUE: [employer] C densitometer analysis of left hip, lumbar spine and left forearm. Lateral survey image of the thoracic and lumbar spine. COMPARISON: DEXA 2006 DX ZAKIA from 08/09/2008 DX XR DEXA BONE DENSITY W/WO ZAKIA from 05/24/2018 FINDINGS: Lateral view of the thoracic and lumbar spine shows no evidence of compression fractures. Bone mineral density measurements of the lumbar spine correspond to a total T- score of -2.3, in the osteopenic range. This represents a 3.8 percent decrease from 2019 and a 9.2 percent decrease from 2005. Bone mineral density measurements of the left hip correspond to a total T-score of -1.4. This represents an 8 percent decrease from 2019 and 15.1 percent decrease from 2005. the femoral neck T-score is -3.1, in the osteoporotic range. Theleft forearm bone mineral density measurements correspond to a T-score of the distal 3rd of -2.2, in the osteopenic range. This represents a 4.7 percent decrease from 2019. The forearm was not analyzed on the older exams. IMPRESSION: Osteoporosis of the femoral neck. Osteopenia of the spine and forearm.
== END ==
LOC: DI 00:37
PROVIDERS: PCP Student in an Organized Health Care Education/Training Program; Visit Provider Student in an Organized Health Care Education/Training Program
DX: Z78.0 Asymptomatic menopausal state (principal); Z12.31 Encounter for screening mammogram for malignant neoplasm of breast
CPT/HCPCS: 77063; 77067; 77080